=== PATIENT | male | born 1945 | race Two or more races ===

== ENCOUNTER 2023-02-17 09:59 | Emergency (ER) | payer MEDICARE, MEDICAID ==
[~2023-02-17] VITALS: Ht 182.9 cm; Wt 85.0 kg
[2023-02-17 10:30] VITALS: BP 137/62
[2023-02-17 11:16] LABS: Urine Bacteria NONE SEEN /hpf (None Seen); Urine Blood 3+ /uL (Negative); Urine WBC 1343 /hpf (0 - 3); Urine WBC Clumps PRESENT /hpf (None Seen)
[2023-02-17 11:30] LABS: Urine Specific Gravity 1.015 (1.001-1.035)
[2023-02-17 12:00] LABS: Basophils # (auto) 0.1 10 ^3/uL (0-0.2); Basophils % (auto) 0.5 % (0.0-2.0); Eosinophils # (auto) 0 10 ^3/uL (0-0.8); Eosinophils % (auto) 0.2 % (0.0-7.0); Hematocrit 44.3 % (41.0-53.0); Hemoglobin 14.9 g/dL (13.5-17.5); Lymphocytes # (auto) 1.1 10 ^3/uL (0.4-5.4); Lymphocytes % (auto) 9.1 % (10.0-50.0); Mean Corpuscular Hemoglobin 29.3 pg (28.0-32.0); Mean Corpuscular Hgb Conc. 33.6 g/dL (32.0-36.0); Mean Corpuscular Volume 87.3 fL (80.0-100.0); Monocytes # (auto) 0.8 10 ^3/uL (0-1.3); Monocytes % (auto) 7.1 % (0.0-12.0); Neutrophils # (auto) 9.9 10 ^3/uL (1.6-8.6); Neutrophils % (auto) 83.1 % (37.0-80.0); Nucleated Red Blood Cells % 0.1 %; Red Blood Cells 5.08 10^6/uL (4.5-5.90); Red Cell Distribution Width 14.8 % (11.8-14.3); White Blood Cell 11.9 10^3/uL (4.4-10.8)
[2023-02-17 12:18] LABS: Albumin 3.8 g/dL (3.4-5.0); Calcium 8.9 mg/dL (8.5-10.1); Potassium 3.8 mmol/L (3.5-5.1)
[2023-02-17 12:22] LABS: BUN/Creatinine Ratio 15.9 (10.0-20.0); Bilirubin, Total 1.7 mg/dL (0.2-1.0); Total Protein 7.5 g/dL (6.4-8.2)
[2023-02-17 12:27] LABS: INR 1.07 (0.9-1.15); Partial Thromboplastin Time 34.1 sec (24.6-33.4)
[2023-02-17] MEDS ORDERED: D5W/LACTATED RINGERS 1,000 ML IV ONE (15:45)
[2023-02-17] MEDS ORDERED: cefTRIAXone 1GM/50ML D5W 50 ML IV ONE (15:45)
== END 2023-02-17 18:19 | disposition left against medical advice (07) ==
LOC: ER 09:59
DX: N13.30 Unspecified hydronephrosis (principal); N32.9 Bladder disorder, unspecified; E11.9 Type 2 diabetes mellitus without complications; I10 Essential (primary) hypertension
CPT/HCPCS: 36415; 74176; 80053; 81001; 85025; 85610; 85730

== ENCOUNTER 2024-06-21 23:01 | Emergency (ER) | payer MEDICARE, MEDICAID ==
[~2024-06-21] VITALS: Ht 175.3 cm; Wt 77.1 kg
[2024-06-21 23:40] VITALS: TEMP 97.8
[2024-06-22] MEDS: SODIUM CHLORIDE 0.9% 1,000 ML IVB ONE (00:16)
[2024-06-22] MEDS: ONDANSETRON HCL 4 MG/2 ML VIAL IV ONE ×2 (00:18→02:32)
[2024-06-22] MEDS: MORPHINE SULFATE 4 MG/ML SYR/VIAL IV ONE ×2 (00:19→02:33)
[2024-06-22 00:51] LABS: Basophils # (auto) 0 10 ^3/uL (0-0.2); Basophils % (auto) 0.2 % (0.0-2.0); Eosinophils # (auto) 0 10 ^3/uL (0-0.8); Hemoglobin 13.1 g/dL (13.5-17.5); Lymphocytes # (auto) 0.5 10 ^3/uL (0.4-5.4); Lymphocytes % (auto) 3.3 % (10.0-50.0); Mean Corpuscular Hemoglobin 29.7 pg (28.0-32.0); Mean Corpuscular Hgb Conc. 33.7 g/dL (32.0-36.0); Mean Corpuscular Volume 88.1 fL (80.0-100.0); Monocytes # (auto) 0.4 10 ^3/uL (0-1.3); Monocytes % (auto) 2.3 % (0.0-12.0); Neutrophils # (auto) 14.1 10 ^3/uL (1.6-8.6); Neutrophils % (auto) 94.2 % (37.0-80.0); Platelet Count (auto) 157 10^3/uL (140-450); Red Blood Cells 4.43 10^6/uL (4.5-5.90); Red Cell Distribution Width 14.2 % (11.8-14.3)
[2024-06-22 01:04] LABS: INR 1.19 (0.9-1.15); Prothrombin Time 12.5 sec (9.3-11.8)
[2024-06-22 01:11] LABS: Alanine Aminotransferase 10 U/L (7-40); Albumin 3.8 g/dL (3.2-4.8); Alkaline Phosphatase 78 U/L (46-116); Anion Gap 9 (5-15); Aspartate Aminotransferase 11 U/L (13-40); Bilirubin, Total 0.9 mg/dL (0.2-1.0); Blood Urea Nitrogen 39 mg/dL (9-23); Calcium 8.4 mg/dL (8.7-10.4); Carbon Dioxide 18 mmol/L (20-30); Chloride 105 mmol/L (98-107); Glucose 228 mg/dL (74-106); Potassium 5.4 mmol/L (3.5-5.1); Sodium 132 mmol/L (136-145); Total Protein 6.8 g/dL (5.7-8.2)
[2024-06-22 04:00] VITALS: BP 126/67; RESP 16; O2SAT 98
[2024-06-22] MEDS ORDERED: LEVO500T91 PO (04:11)
[2024-06-22] MEDS ORDERED: HYDR-4798 PO (04:11)
[2024-06-22 04:34] VITALS: PULSE 133
[2024-06-22] MEDS: METOPROLOL TARTRATE 1MG/1ML-5ML VIAL IV ONE (04:36)
[2024-06-22] MEDS ORDERED: METOPROLOL TARTRATE 1MG/1ML-5ML VIAL IV SCH (04:45)
[2024-06-22] MEDS: SODIUM CHLORIDE 0.9% 1,000 ML IV ONE (04:46)
[2024-06-22] MEDS: METOPROLOL TARTRATE 1MG/1ML-5ML VIAL IV SCH (04:54)
== END 2024-06-22 05:48 | disposition home or self-care (01) ==
LOC: ER 23:01 → EDBD 23:01 → ER 06-22 05:48
DX: N13.30 Unspecified hydronephrosis (principal); K44.9 Diaphragmatic hernia without obstruction or gangrene; E11.9 Type 2 diabetes mellitus without complications; I10 Essential (primary) hypertension; I25.2 Old myocardial infarction
CPT/HCPCS: 36415; 74176; 80053; 85025; 85610; 86850; 86900; 86901; 93005; 96361; 96374; 96375; 96376; 99285; J2270; J2405; J7030

== ENCOUNTER 2024-06-22 15:15 | Emergency (ER) | payer MEDICARE, MEDICAID ==
[~2024-06-22] VITALS: Ht 180.3 cm; Wt 85.0 kg
[~2024-06-22 15:15] MED LIST: HYDR-4798 PO; LEVO500T91 PO
[2024-06-22 17:51] VITALS: BP 119/87; PULSE 127; RESP 18; O2SAT 94
== END 2024-06-22 18:20 | disposition left against medical advice (07) ==
LOC: ER 15:15
DX: R31.9 Hematuria, unspecified (principal); R30.9 Painful micturition, unspecified; Z53.21 Procedure and treatment not carried out due to patient leaving prior to being seen by health care provider
CPT/HCPCS: 93005

== ENCOUNTER 2024-11-15 03:20 | Inpatient (IN) | payer MEDICARE, MEDICAID ==
[~2024-11-15] VITALS: Ht 182.9 cm; Wt 90.8 kg
--- NOTE | 2024-11-15 04:00 | ED.PDOC ---
History of Present Illness HPI Comments 79 y/o M is BIBA for c/o left-sided body pain s/p mechanica fall and injury, today. Per EMS report, patient is stated to have been in his bathroom when he, suddenly, felt dizzy, and slipped and fell onto his left-side w/o lost of consciousness or additional injuries sustained then. Patient was noted to have had stable vitals within normal limits, with exception of Aflutter w/PAC's and PVC's on lead caster. Patient denies having any additional injuries, vision or speech changes, dizziness, fever, chills, or other associated symptoms or modifiers at this time. Chief Complaint: Syncope Time Seen by MD: 03:35 Primary Care Provider: FILIPE Brar Notes: Nurses Notes, Spd Tech Notes, Medications, Allergies Allergies: Coded Allergies: NO KNOWN ALLERGIES (Unverified , 02/17/23) Home Meds Active Scripts Hydrocodone-Acetaminophen (Hydrocodone Bitartrate/AC 10-325 mg) 1 Tab Tab, 1 TAB PO QIDP, #20 TAB Prov:ANDREAS MASTERS MD 06/22/24 Levofloxacin Hemihydrate (LEVAQUIN 500 MG) 500 Mg Tab, 500 MG PO DAILY for 7 Days, #7 TAB Prov:ANDREAS MASTERS MD 06/22/24 Information Source: Patient, Emergency Med Personnel Mode of Arrival: EMS Severity: Moderate Timing: Hours Duration: Since onset Prehospital treatment: 12 Lead EKG, Paperhanger Past Medical History PAST MEDICAL HISTORY: DM, HTN, Kidney Stones, ID Family History Family History: Reviewed,noncontributory to illness Social History Smoker: Non-Smoker Alcohol: Denies ETOH Use Drugs: Denies Drug Use Lives In: Home Musculoskeletal: reports: others (left-sided rib pain ) All Other Systems: Reviewed and Negative (negative unless otherwise stated above or in HPI) Physical Exam General Appearance: No Apparent Distress, Normal HEENT: Normal ENT Inspection, Pharynx Normal, TMs Normal Neck: Full Range of Motion, Non-Tender, Normal, Normal Inspection Respiratory: Decreased Breath Sounds Cardiovascular: No Edema, No JVD, No Murmur, No Gallop, Normal Peripheral Pulses, Regular Rate/Rhythm Breast Exam: Deferred Gastrointestinal: No Organomegaly, Non Tender, No Pulsatile Mass, Normal Bowel Sounds, Soft Genitalia: Deferred Pelvic: Deferred Rectal: Deferred Extremities: No calf tenderness, Normal capillary refill, Normal inspection, Normal range of motion, Non-tender, No pedal edema Musculoskeletal : Location: Left Extremity Location: Other (rib) Apperance: Tenderness Neurologic: Alert, equipment coordinator II-XII nml as Tested, No Motor Deficits, Normal Affect, Normal Mood, No Sensory Deficits Cerebellar Function: Normal Reflexes: Normal Skin: Dry, Normal Color, Warm Lymphatic: No Adenopathy Was a procedure done? Was a procedure done?: No Differential Dx Considerations may include: Rib fractures pneumothorax diaphragmatic hernia X-Ray, Labs, Meds, VS Vital Signs Date Time Temp Pulse Resp B/P (MAP) Pulse Ox O2 Delivery O2 Flow Rate FiO2 11/15/24 03:39 97.5 62 22 108/50 (69) 95 11/15/24 03:21 [address] [address] Ph: [phone] DIAGNOSTIC IMAGING Diagnostic Imaging Report : [id number] Signed PATIENT: ALEKSANDAR SHAH ACCT: [id number] UNIT: [id number] : 10/09/1992 LOC: ER ROOM / BED: / AGE / SEX: 32 / M ADM STATUS: REG ER SERVICE [id number] ORDERING PHYSICIAN: ANDREAS MASTERS MD PROCEDURE(s): ABPL - CT AB PEL WO CON-NO ORAL OR IV REASON: abd pain ORDER NUMBER(s): [id number], ACCESSION NUMBER(s): [id number] Exam: CT CT AB PEL WO CON-NO ORAL OR IV History: abd pain Comparison Study: CT scan of the abdomen pelvis performed on 07/22/2020. Technique: Multidetector spiral CT of the abdomen and pelvis was performed from lung bases to pubic symphysis. Imaging was performed without intravenous contrast. Coronal and sagittal multiplanar reformats were obtained from the axial data set by the technologist. Radiation Dose : 1. Abdomen/Pelvis: CTDIvol 27.6 mGy, DLP 1621.3 mGy*cm. Findings: Evaluation of vasculature and solid organs is limited due to lack of intravenous contrast use. Lung Bases: Lung bases are clear. Visualized portions of the heart and pericardium are unremarkable. Liver: The liver is enlarged measuring 24.9 cm. Low attenuating liver parenchyma. No focal lesions. Gallbladder and Biliary Tree: The gallbladder is unremarkable. No intrahepatic or extrahepatic biliary ductal dilatation. Spleen: Unremarkable Pancreas: The pancreas is grossly unremarkable. Adrenal Glands: Unremarkable Kidneys: Kidneys are unremarkable without calculi or hydronephrosis. GI tract: The stomach is grossly normal in appearance. No evidence of small bowel wall thickening or abnormal dilatation to suggest bowel obstruction. The colon is unremarkable. The appendix is visualized and is normal. Peritoneum/mesentery/retroperitoneum. No evidence of free intraperitoneal air. No ascites. No evidence of suspicious lymphadenopathy. Abdominal Wall: Large umbilical hernia containing bowel loops and iperitoneal fat. No obstruction. Vasculature: The visualized abdominal aorta is normal in size and caliber. Evaluation of abdominal and pelvic vessels is limited due to lack of intravenous contrast. Urinary Bladder: Grossly unremarkable for degree of distention. Pelvic Organs: Unremarkable Musculoskeletal: No aggressive focal bony lesions, acute fractures or dislocation. IMPRESSION: 1. Large umbilical hernia containing bowel loops and peritoneal fat. No bowel obstruction. 2. Hepatic steatosis and hepatomegaly. ATED BY: GABE ORNELAS MD DICTATED DATE/TIME: 11/15/24434 SIGNED BY: GABE ORNELAS MD SIGNED DATE/TIME: 11/15/24434 CC: This is a 79 year he attempted to go up a step and fell as he only made it up one step. Fellow his left chest causing severe pain. Although the chest CT is pending it appears to me he has a large hiatal hernia with intestine events and is high is T8 on the left side. I will for the diminished breath sounds on the left. Labs are pending The patient will be admitted to the hospitalist for further evaluation and care. Time of 1ST Reevaluation: 04:05 Reevaluation 1ST: Unchanged Patient Education/Counseling: Diagnosis, Treatment Family Education/Counseling: No Family Present Departure 1 Departure Time of Disposition: 05:28 Impression: Primary Impression: Diaphragmatic hernia Qualified Codes: K44.9 - Diaphragmatic hernia without obstruction or gangrene Additional Impressions: Dizziness Fall Qualified Codes: W19.XXXA - Unspecified fall, initial encounter Syncope Qualified Codes: R55 - Syncope and collapse Chest wall pain Hepatomegaly Steatosis Disposition: ADMITTED INPATIENT Admit to: Tele Condition: Guarded Critical Care Note Critical Care Time?: Yes (45 min-critical care time only) Stability Stability form required: No Heart Score Heart Score: Heart Score Response (Comments) Value History N/A 0 EKG N/A 0 Age N/A 0 Risk Factors N/A 0 Troponin N/A 0 Total 0 I personally scribed for ANDREAS MASTERS MD ([email or web address]) on 11/15/24 at 04:00. Electronically submitted by Tremaine Zarate ([email or web address]). ANDREAS MASTERS MD Nov 15, 2024 04:00
--- NOTE | 2024-11-15 04:54 | DVH ---
EXAM: CT HEAD WITHOUT CONTRAST INDICATION: dizzy TECHNIQUE: CT of the head without intravenous contrast. Coronal and sagittal reformatted images are submitted. Radiation Dose : 1. Head: CT Dose: CTDI volume is 18.0 mGy. Dose-length product is 768.9 mGy*cm The dose indicators for CT are the volume Computed Tomography (CT) Dose Index (CTDIvol) and the Dose Length Product (DLP), and are measured in units of mGy and mGy-cm, respectively. These indicators are not patient dose, but values generated from the CT scanner acquisition factors. The report includes radiation exposure data for exposures received during this examination. All CT scans at this medical facility are performed using dose modulation techniques as appropriate to a performed exam including the following: Automated exposure control was utilized; adjustment of the MA and/or KV according to patient size; and use of iterative reconstruction technique. COMPARISON: None. FINDINGS: There is no evidence of acute intracranial hemorrhage, extra-axial collection, mass effect, midline s hift, herniation or hydrocephalus. The ventricles, sulci and cisterns are age appropriate. The weiss-white differentiation is intact. The visualized paranasal sinuses and mastoid air cells are clear. No depressed calvarial fracture. The surrounding soft tissues are unremarkable. IMPRESSION: 1. No evidence of acute intracranial abnormality.
[2024-11-15] MEDS: MORPHINE SULFATE 4 MG/ML SYR/VIAL IV ONE (05:27)
--- NOTE | 2024-11-15 05:29 | DVH ---
Procedure: CT CHEST WITHOUT CONTRAST Reason for study/Clinical History: fall Comparison Study: None available at time of dictation. Exam Date: 11/15/2024 04:32 AM TECHNIQUE: Multidetector CT of the chest was performed from the lung apices to the upper abdomen with out the use of intravenous contract. Axial, coronal and sagittal multiplanar reformats were performed . Radiation Dose Information: CT Dose: CTDI volume is 18.0 mGy. Dose-length product is 768.92 mGy*cm The dose indicators for CT are the volume Computed Tomography (CT) Dose Index (CTDIvol) and the Dose Length Product (DLP), and are measured in units of mGy and mGy-cm, respectively. These indicators are not patient dose, but values generated from the CT scanner acquisition factors. The report includes radiation exposure data for exposures received during this examination. FINDINGS: Lower neck: Normal thyroid. Lungs: Large diaphragmatic hernia which extends into the left thorax. This deviates the mediastinum t o the right. Left basilar atelectasis. No focal consolidation, pleural effusion or pneumothorax. Central airways: Patent. Heart/Vascular Structures: The heart is enlarged. Coronary artery calcifications. No pericardial effu tracy. The main pulmonary artery is enlarged measuring 3.7 cm which May suggest pulmonary arterial hyp ertension. Normal caliber thoracic aorta with scattered atherosclerotic calcifications. Lymph Nodes: No adenopathy Musculoskeletal: There is an acute left 10th and 11th posterior rib fractures. Mild L2 compression de formity. Soft tissues: Normal. Upper abdomen: Left diaphragmatic hernia containing colon and spleen Bilateral renal cysts. Multiple calcifications in the liver. IMPRESSION: 1. Acute left posterior 10th and 11th rib fractures. No pneumothorax. 2. Left basilar atelectasis. 3. Cardiomegaly. Coronary artery disease. Dilated main pulmonary artery which may represent pulmonar y arterial hypertension. 4. Left large diaphragmatic hernia containing colon and spleen. Radiation optimization: All CT scans at this facility use at least one of these dose optimization brianda hniques: automated exposure control mA and/or kV adjustment per patient size (includes targeted exam s where dose is matched to clinical indication) or iterative reconstruction.
[2024-11-15 05:30] VITALS: PULSE 90; RESP 17; O2SAT 97
[2024-11-15 05:46] LABS: Basophils # (auto) 0.1 10 ^3/uL (0-0.2); Basophils % (auto) 0.5 % (0.0-2.0); Eosinophils # (auto) 0.1 10 ^3/uL (0-0.8); Eosinophils % (auto) 0.6 % (0.0-7.0); Hematocrit 42.5 % (41.0-53.0); Hemoglobin 14.2 g/dL (13.5-17.5); Lymphocytes # (auto) 0.7 10 ^3/uL (0.4-5.4); Lymphocytes % (auto) 6.8 % (10.0-50.0); Mean Corpuscular Hemoglobin 28.7 pg (28.0-32.0); Mean Corpuscular Hgb Conc. 33.3 g/dL (32.0-36.0); Mean Corpuscular Volume 86.2 fL (80.0-100.0); Monocytes # (auto) 0.4 10 ^3/uL (0-1.3); Monocytes % (auto) 3.4 % (0.0-12.0); Neutrophils # (auto) 9.4 10 ^3/uL (1.6-8.6); Neutrophils % (auto) 88.7 % (37.0-80.0); Nucleated Red Blood Cells % 0.1 %; Platelet Count (auto) 140 10^3/uL (140-450); Red Blood Cells 4.93 10^6/uL (4.5-5.90); Red Cell Distribution Width 15.4 % (11.8-14.3); White Blood Cell 10.7 10^3/uL (4.4-10.8)
[2024-11-15 06:03] LABS: INR 0.97 (0.9-1.15); Partial Thromboplastin Time 28.8 SEC (24.5-34.5); Prothrombin Time 10.3 sec (9.3-11.8)
[2024-11-15 06:15] LABS: Alanine Aminotransferase 17 U/L (7-40); Albumin 4.2 g/dL (3.2-4.8); Alkaline Phosphatase 63 U/L (46-116); Anion Gap 8 (5-15); Aspartate Aminotransferase 22 U/L (13-40); Blood Urea Nitrogen 21 mg/dL (9-23); Calcium 9.7 mg/dL (8.7-10.4); Carbon Dioxide 26 mmol/L (20-31); Potassium 3.9 mmol/L (3.5-5.1); Sodium 142 mmol/L (136-145)
[2024-11-15 06:16] LABS: Bilirubin, Total 0.8 mg/dL (0.2-1.0); Total Protein 7.1 g/dL (5.7-8.2)
[2024-11-15 06:21] LABS: Chloride 108 mmol/L (98-107); Glucose 131 mg/dL (74-106)
[2024-11-15] MEDS ORDERED: HYDROcodone-ACET 5/325MG TAB PO PRN (08:45)
[2024-11-15] MEDS ORDERED: ACETAMINOPHEN 325 MG TAB PO PRN (08:45)
[2024-11-15] MEDS ORDERED: NITROGLYCERIN 0.4 MG SL TAB SL PRN (08:45)
[2024-11-15] MEDS ORDERED: ONDANSETRON HCL 4 MG/2 ML VIAL IV PRN (08:45)
[2024-11-15] MEDS ORDERED: DEXTROSE (50%) 50ML SYRG IV PRN (08:45)
[2024-11-15] MEDS ORDERED: DOCUSATE SOD 100 MG CAP PO PRN (08:45)
[2024-11-15] MEDS ORDERED: MORPHINE SULFATE INJ 2 MG/ml SYRG IV PRN (08:45)
[2024-11-15] MEDS ORDERED: KETOROLAC TROMETH 30 MG/ML 1ML VIAL IV PRN (09:00)
--- NOTE | 2024-11-15 09:14 | DVHHP2 ---
History of Present Illness Reason for Visit: Fall History of Present Illness Flower Joe is an 79-year-old male with past medical history of RI in 2013 with 2 stents placed, diabetes, hypertension, kidney stones, and hypothyroidism, who was brought to the hospital after he fell this morning. Patient states he woke up early this morning to go to the bathroom, while walking in the bathroom he fell and hit his left side on the stairs to his bathtub. Patient states his heard him fall and came to help him. Due to the pain it was difficult for him to get up at first. Patient denies any dizziness, palpitations, chest pain or loss of consciousness at time of fall. States he is not sure why or how he f ell. While in the ER patient had an EKG completed that showed he is in atrial flutter. Patient denies any history of irregular heart rhythm. Cardiovascular: CAD, HTN, RI (2013) Renal/: Other (kidney stones) Endocrine: Diabetes, Hypothyroidism Past Surgical History: Other (PTCA 2014 2 stents placed, ) Smoke: No ALCOHOL: none Drugs: None Lives: with Family Domestic Violence: Neg Review of Systems Constitutional: No: Fever, Chills, Sweats, Weakness, Malaise, Other Eyes: No: Pain, Vision change, Conjunctivae inflammation, Eyelid inflammation, Other, Redness ENT: No: Ear pain, Ear discharge, Nose pain, Nose discharge, Nose congestion, Mouth pain, Mouth swelling, Throat pain, Throat swelling, Other Respiratory: No: Cough, Dry, Shortness of breath, SOB with excertion, Wheezing, Hemoptysis, Pleuritic Pain, Sputum, Wheezing, Other Cardiovascular: No: Chest Pain, Palpitations, Orthopnea, Paroxysmal Noc. Dyspnea, Edema, Lt Headedness, Other Gastrointestinal: No: Nausea, Vomiting, Abdominal Pain, Diarrhea, Constipation, Melena, Hematochezia, Other Genitourinary: No Dysuria, No Frequency, No Incontinence, No Hematuria, No Retention, No Other Musculoskeletal: back pain (left); No: other, neck pain, shoulder pain, arm pain, hand pain, leg pain, foot pain Skin: No: Rash, Lesions, Jaundice, Bruising, Other Neurological: No: Weakness, Numbness, Incoordination, Change in speech, Confusion, Seizures, Other Allergies: Coded Allergies: NO KNOWN ALLERGIES (Unverified , 5/10/23) Exam Vital Signs Vital Signs Date Time Temp Pulse Resp B/P (MAP) Pulse Ox O2 Delivery O2 Flow Rate FiO2 11/15/24 07:49 99 18 96 Room Air 11/15/24 07:45 99.1 138/70 (92) 99.1 11/15/24 05:30 0 21 General Appearance: Alert, Oriented X3, Cooperative, mild distress HEENT: Atraumatic, PERRLA Respiratory: Clear to auscultation, Normal air movement Cardiovascular: Regular rate Abdominal: Normal bowel sounds, Soft, No tenderness Extremities: No clubbing, No cyanosis, No edema Skin: No rashes, No breakdown, No significant lesion Neuro: Normal speech, Sensation intact Psych/Mental Status: Mental status NL, Mood NL Labs/Xrays Labs Test 11/15/24 06:24 11/15/24 05:32 Range/Units Troponin I High Sensitivity 6 </=54 ng/L White Blood Count 10.7 4.4-10.8 10^3/uL Red Blood Count 4.93 4.5-5.90 10^6/uL Hemoglobin 14.2 13.5-17.5 g/dL Hematocrit 42.5 41.0-53.0 % Mean Corpuscular Volume 86.2 80.0-100.0 fL Mean Corpuscular Hemoglobin 28.7 28.0-32.0 pg Mean Corpuscular Hemoglobin Concent 33.3 32.0-36.0 g/dL Red Cell Distribution Width 15.4 H 11.8-14.3 % Platelet Count 140 140-450 10^3/uL Mean Platelet Volume 7.7 6.9-10.8 fL Neutrophils (%) (Auto) 88.7 H 37.0-80.0 % Lymphocytes (%) (Auto) 6.8 L 10.0-50.0 % Monocytes (%) (Auto) 3.4 0.0-12.0 % Eosinophils (%) (Auto) 0.6 0.0-7.0 % Basophils (%) (Auto) 0.5 0.0-2.0 % Neutrophils # (Auto) 9.4 H 1.6-8.6 10 ^3/uL Lymphocytes # (Auto) 0.7 0.4-5.4 10 ^3/uL Monocytes # (Auto) 0.4 0-1.3 10 ^3/uL Eosinophils # (Auto) 0.1 0-0.8 10 ^3/uL Basophils # (Auto) 0.1 0-0.2 10 ^3/uL Nucleated Red Blood Cells 0.1 % Prothrombin Time 10.3 9.3-11.8 sec Prothrombin Time INR 0.97 0.9-1.15 Activated Partial Thromboplast Time 28.8 24.5-34.5 SEC Sodium Level 142 136-145 mmol/L Potassium Level 3.9 3.5-5.1 mmol/L Chloride Level 108 H 98-107 mmol/L Carbon Dioxide Level 26 20-31 mmol/L Anion Gap 8 5-15 Blood Urea Nitrogen 21 9-23 mg/dL Creatinine 1.31 H 0.700-1.30 mg/dL Glomerular Filtration Rate Calc 55 >90 mL/min BUN/Creatinine Ratio 16.0 10.0-20.0 Serum Glucose 131 H 74-106 mg/dL Calcium Level 9.7 8.7-10.4 mg/dL Magnesium Level 2.0 1.6-2.6 mg/dL Total Bilirubin 0.8 0.2-1.0 mg/dL Aspartate Amino Transferase (AST) 22 13-40 U/L Alanine Aminotransferase (ALT) 17 7-40 U/L Alkaline Phosphatase 63 46-116 U/L B-Type Natriuretic Peptide 85.63 0-100 pg/mL Total Protein 7.1 5.7-8.2 g/dL Albumin 4.2 3.2-4.8 g/dL EXAM: CT HEAD WITHOUT CONTRAST COMPARISON: None. FINDINGS: There is no evidence of acute intracranial hemorrhage, extra-axial collection, mass effect, midline shift, herniation or hydrocephalus. The ventricles, sulci and cisterns are age appropriate. The weiss-white differentiation is intact. The visualized paranasal sinuses and mastoid air cells are clear. No depressed calvarial fracture. The surrounding soft tissues are unremarkable. IMPRESSION: 1. No evidence of acute intracranial abnormality. Procedure: CT CHEST WITHOUT CONTRAST FINDINGS: Lower neck: Normal thyroid. Lungs: Large diaphragmatic hernia which extends into the left thorax. This deviates the mediastinum to the right. Left basilar atelectasis. No focal consolidation, pleural effusion or pneumothorax. Central airways: Patent. Heart/Vascular Structures: The heart is enlarged. Coronary artery calcifications. No pericardial effusion. The main pulmonary artery is enlarged measuring 3.7 cm which May suggest pulmonary arterial hypertension. Normal caliber thoracic aorta with scattered atherosclerotic calcifications. Lymph Nodes: No adenopathy Musculoskeletal: There is an acute left 10th and 11th posterior rib fractures. Mild L2 compression deformity. Soft tissues: Normal. Upper abdomen: Left diaphragmatic hernia containing colon and spleen Bilateral renal cysts. Multiple calcifications in the liver. IMPRESSION: 1. Acute left posterior 10th and 11th rib fractures. No pneumothorax. 2. Left basilar atelectasis. 3. Cardiomegaly. Coronary artery disease. Dilated main pulmonary artery which may represent pulmonary arterial hypertension. 4. Left large diaphragmatic hernia containing colon and spleen. Assessment/Plan Assessment/Plan Assessment: Fall with injury, Multiple rib fractures, Possible syncope, New onset atrial flutter, Large diaphragmatic hernia, Hypertension, Diabetes, Hypothyroidism, Plan: Admit to Tele, Cardiology consult, ECHO, Carotid ultrasound, A1c, Pain management, Accu checks Q AC&HS with sliding scale, Home medications reconciled, Plan discussed with: Patient My Orders Orders - EVERARDO PRIDE Procedure Category Date Status Time * Cardiology Consult CONS 11/15/24 Transmitted 08:41 Glucose Blood PHA 11/15/24 Verified (Accu-Chek Comfort 11:30 Bedtime Insulin Scale PHA 11/15/24 Verified 22:00 Moderate Insulin Ss PHA 11/15/24 Verified 11:30 Dextrose 50% Syringe PHA 11/15/24 Verified 08:45 Admit ADMIT 11/15/24 Verified 08:42 Code Status CODE 11/15/24 Verified 08:42 Sodium Chloride Lock PHA 11/15/24 Verified (Saline Lock Ns) 14:00 Hydrocodone-Acet PHA 11/15/24 Verified 5/325mg Tab ([place] 08:45 Ondansetron Hcl PHA 11/15/24 Verified (Zofran) 08:45 Docusate Sodium PHA 11/15/24 Verified Capsule (Colace 08:45 Fall Risk Precautions INGA 11/15/[address] 08:42 Complete Blood Count LAB 11/16/24 Verified 04:00 Comprehensive LAB 11/16/24 Verified Metabolic Panel 04:00 Cardiac DIET 11/15/24 Verified Diet-2gna,Lofat,Lochol Breakfast Echo 2d Mode Cardiac US 11/15/24 Verified DOP 08:42 Carotid Duplx W Color US 11/15/24 Verified DOP 08:42 Condition: Serious [facility] 11/15/24 Verified 08:42 Acetaminophen Tablet [facility] 11/15/24 Verified (Tylenol Tablet) 08:45 Nitroglycerin [facility] 11/15/24 Verified Sublingual (Ntrostat 08:45 Morphine Sulfate [facility] 11/15/24 Verified Injection 08:45 Stat Ekg For Chest [facility] 11/15/24 Verified Pain 08:42 Notify Md Of Changes [facility] 11/15/24 Verified From Base 08:42 Labelling Machine Operator For [facility] 11/15/24 Verified 24 Hours 08:42 Emergency Dysrhythmia [facility] 11/15/24 Verified Protocol 08:42 Rhythm Strips Once [facility] 11/15/24 Verified Every Shift 08:42 Oxygen By Nasal 11/15/24 Verified Cannula 08:42 Date of Service: Nov 15, 2024 Billing Provider: EVERARDO PRIDE Common Visit Codes: [id number] INP/OBS CARE (MOD) EVERARDO PRIDE Nov 15, 2024 09:14
--- NOTE | 2024-11-15 09:41 | DVH ---
CAROTID ARTERIAL DOPPLER CLINICAL HISTORY: syncope TECHNIQUE: Doppler study of bilateral carotid/vertebral arteries were performed. Comparison: None FINDINGS: The bilateral common carotid, external and internal carotid arteries appear patent without hemodynami jane significant stenosis. There is no significant flow limiting plaque formation identified.The sp ectral wave forms and peak systolic velocities are within normal limits. Antegrade flow is present within the vertebral arteries with appropriate velocities and waveforms. Right ICA/CCA PSV ratio = 0.9. Left ICA/CCA PSV ratio = 0.8 . IMPRESSION: 1. No hemodynamically significant stenosis within the carotid arteries. HS:Y
[2024-11-15 11:12] LABS: Urine Bacteria None Seen /hpf (None Seen)
[2024-11-15] MEDS ORDERED: METH-928 PO (11:21)
[2024-11-15] MEDS ORDERED: LEVO125T7 PO (11:21)
[2024-11-15] MEDS ORDERED: ALLO300T2 PO (11:21)
[2024-11-15] MEDS ORDERED: MET25T PO (11:21)
[2024-11-15] MEDS ORDERED: LOSA-535 PO (11:21)
[2024-11-15 11:36] LABS: Urine Blood 3+ /uL (Negative); Urine Clarity Ex.Turbid (Clear); Urine Color Light-Red (Yellow); Urine Protein, UAD 2+ (Negative); Urine Specific Gravity 1.011 (1.001-1.035); Urine Squamous Epithelial Cell None Seen /hpf (<5); Urine Urobilinogen Normal (Negative); Urine WBC 1959 /HPF (0-3)
--- NOTE | 2024-11-15 11:42 | DVHINCON2 ---
Date Seen: Nov 15, 2024 Referring Physician TERE Thomas Reason for Consultation A-flutter, new onset History of Present Illness This is an 79-year-old man who presented to the emergency room via EMS with a chief complaint of fall injury earlier today. The patient reports he awoke to use the bathroom when he felt a sudden onset of dizziness with a subsequent fall injury onto his left-sided body. Denies loss of consciousness, oral trauma, or incontinence. Denies chest pain, palpitations, diaphoresis, shortness of breath, or syncope. The patient does complaint of gross hematuria since falling. Per son, the patient also experienced a hypoglycemic event last night with a blood glucose level in the 50s ng/dL. Patient underwent a 12 lead electrocardiogram revealing an atrial flutter rhythm with a variable block. The patient denies any history of cardiac arrhythmias. Follows up in the outpatient setting with the primary plastic duplicator in [place] given history of CAD. Significant medical history includes coronary artery disease status post PTCA in cluding two JAE at [facility] on 2013 and with current ASA therapy, hypertension, dyslipidemia, insulin-dependent diabetes mellitus, thyroid disease, and gout. Past Medical History Past medical history reviewed. No other significant than mentioned above. Past Surgical History PTCA including two JAE, 2013 Recent urinary procedure, 09/2024 Family History Family history reviewed. Social History Denies the use of illicit drugs, alcohol, or tobacco use. Allergies: Coded Allergies: NO KNOWN ALLERGIES (Unverified , 02/17/23) Home Meds Reported Medications Methenamine Hippurate (Methenamine Hippurate) 1 Gm Tab, 1 TAB PO BID 11/15/24 Levothyroxine Sodium (Levothyroxine Sodium) 125 Mcg Tab, 1 TAB PO DAILY 11/15/24 Allopurinol (Allopurinol) 300 Mg Tab, 1 TAB PO DAILY 11/15/24 Losartan Potassium (Losartan Potassium) 100 Mg Tab, 1 TAB PO DAILY 11/15/24 Metoprolol Tartrate (Lopressor) 25 Mg Tb, 1 TAB PO BID 11/15/24 Discontinued Scripts Hydrocodone-Acetaminophen (Hydrocodone Bitartrate/AC 10-325 mg) 1 Tab Tab, 1 TAB PO QIDP, #20 TAB Prov:ANDREAS MASTERS MD 06/22/24 Levofloxacin Hemihydrate (LEVAQUIN 500 MG) 500 Mg Tab, 500 MG PO DAILY for 7 Days, #7 TAB Prov:ANDREAS MASTERS MD 06/22/24 Home Meds Home medications reviewed. Current Medications Current Medications Medications (Trade) Dose Ordered Sig/Lizz Route PRN Reason Start Time Stop Time Status Last Admin Diagnostic Test (Pha) (Accu-Chek Comfort Curve T) 1 strip ACHS 11/15/24 11:30 Insulin Human Regular (InsuLIN R) HS SC 11/15/24 22:00 Insulin Human Regular (InsuLIN R) AC SC 11/15/24 11:30 Dextrose 50 ml UD PRN IV Blood Sugar LESS THAN 60 11/15/24 08:45 Sodium Chloride (Saline Lock Ns) 10 ml Q8HR IV 11/15/24 14:00 Acetaminophen/ Hydrocodone Bitart ([place] 5/325MG Tab) 1 tab Q4HP PRN PO MODERATE PAIN (4-6 PAIN SCALE) 11/15/24 08:45 Ondansetron HCl (Zofran) 4 mg Q4HP PRN IV NAUSEA / VOMITING 11/15/24 08:45 Docusate Sodium (Colace Capsule) 100 mg BIDPRN PRN PO FOR CONSTIPATION 11/15/24 08:45 Acetaminophen (Tylenol Tablet) 650 mg Q6HP PRN PO PAIN SCALE 1-3 OR TEMP>100.4 11/15/24 08:45 Nitroglycerin (Ntrostat Sublingual) 0.4 mg Q5MINP PRN SL FOR CHEST PAIN 11/15/24 08:45 Morphine Sulfate 2 mg Q30M PRN IV FOR CHEST PAIN 11/15/24 08:45 Ketorolac Tromethamine (Toradol Injection) 15 mg Q6HPRN PRN IV MODERATE PAIN (4-6 PAIN SCALE) 11/15/24 09:00 11/20/24 08:59 Metoprolol Tartrate (Lopressor Tablet) 25 mg BID PO 11/15/24 22:00 UNV Patient Own Medication 1 tab DAILY PO 11/16/24 10:00 UNV Patient Own Medication 1 tab DAILY PO 11/16/24 10:00 UNV Patient Own Medication 1 tab DAILY PO 11/16/24 10:00 UNV Patient Own Medication 1 tab BID PO 11/15/24 22:00 UNV Review of Systems Constitutional: No symptom reported Ears, Nose, & Throat: No symptom reported Eyes: No symptom reported Neurological: Dizziness Pulmonary/Respiratory: No symptom reported Cardiovascular: No symptom reported Gastrointestinal: No symptom reported Genitourinary: No symptom reported Musculoskeletal: No symptom reported Skin: No symptom reported Psychiatric: No symptom reported Endocrine: No symptom reported Hemotologic/Lymphatic: No symptom reported Vital Signs Vital Signs Date Time Temp Pulse Resp B/P (MAP) Pulse Ox O2 Delivery O2 Flow Rate FiO2 11/15/24 09:59 99.0 104 14 122/59 (80) 96 99.0 11/15/24 07:49 Room Air 11/15/24 05:30 0 21 Physical Exam General Appearance: Cooperative. Well developed. Well nourished. In no acute distress Head Exam: Normal inspection Neck Exam: Normal inspection. Non-tender. Normal alignment Pulmonary/Respiratory: Chest non-tender. Clear bilateral breath sounds Cardiovascular/Chest: Irregular rate and rhythm. S1, S2. A flutter, controlled rate. No murmurs. No JVD. Peripheral Pulses: 2+ Radial (R). 2+ Radial (L). 2+ Pedal (R). 2+ Pedal (L) Abdominal Exam: Normal bowel sounds. Soft. Nontender. No hepatospenomegaly. No masses Ankle Exam: Negative ankle edema Lower extremities: Negative lower extremity edema Neuro/Mental Status: A&O x4. Coherent Thoughts/Psych: Normal thought pattern. Appropriate mood and affect. Good judgement and insight Appearance: In no acute distress Skin Exam: Normal inspection. Normal color. Warm. Dry Labs/Diagnostic Data Labs Test 11/15/24 08:56 11/15/24 06:24 11/15/24 05:32 Range/Units Troponin I High Sensitivity 6 </=54 ng/L White Blood Count 10.7 4.4-10.8 10^3/uL Red Blood Count 4.93 4.5-5.90 10^6/uL Hemoglobin 14.2 13.5-17.5 g/dL Hematocrit 42.5 41.0-53.0 % Mean Corpuscular Volume 86.2 80.0-100.0 fL Mean Corpuscular Hemoglobin 28.7 28.0-32.0 pg Mean Corpuscular Hemoglobin Concent 33.3 32.0-36.0 g/dL Red Cell Distribution Width 15.4 H 11.8-14.3 % Platelet Count 140 140-450 10^3/uL Mean Platelet Volume 7.7 6.9-10.8 fL Neutrophils (%) (Auto) 88.7 H 37.0-80.0 % Lymphocytes (%) (Auto) 6.8 L 10.0-50.0 % Monocytes (%) (Auto) 3.4 0.0-12.0 % Eosinophils (%) (Auto) 0.6 0.0-7.0 % Basophils (%) (Auto) 0.5 0.0-2.0 % Neutrophils # (Auto) 9.4 H 1.6-8.6 10 ^3/uL Lymphocytes # (Auto) 0.7 0.4-5.4 10 ^3/uL Monocytes # (Auto) 0.4 0-1.3 10 ^3/uL Eosinophils # (Auto) 0.1 0-0.8 10 ^3/uL Basophils # (Auto) 0.1 0-0.2 10 ^3/uL Nucleated Red Blood Cells 0.1 % Prothrombin Time 10.3 9.3-11.8 sec Prothrombin Time INR 0.97 0.9-1.15 Activated Partial Thromboplast Time 28.8 24.5-34.5 SEC Sodium Level 142 136-145 mmol/L Potassium Level 3.9 3.5-5.1 mmol/L Chloride Level 108 H 98-107 mmol/L Carbon Dioxide Level 26 20-31 mmol/L Anion Gap 8 5-15 Blood Urea Nitrogen 21 9-23 mg/dL Creatinine 1.31 H 0.700-1.30 mg/dL Glomerular Filtration Rate Calc 55 >90 mL/min BUN/Creatinine Ratio 16.0 10.0-20.0 Serum Glucose 131 H 74-106 mg/dL Calcium Level 9.7 8.7-10.4 mg/dL Magnesium Level 2.0 1.6-2.6 mg/dL Total Bilirubin 0.8 0.2-1.0 mg/dL Aspartate Amino Transferase (AST) 22 13-40 U/L Alanine Aminotransferase (ALT) 17 7-40 U/L Alkaline Phosphatase 63 46-116 U/L B-Type Natriuretic Peptide 85.63 0-100 pg/mL Total Protein 7.1 5.7-8.2 g/dL Albumin 4.2 3.2-4.8 g/dL Assessment Atrial flutter with variable block, controlled rate, newly diagnosed Near syncopal event with associated hypoglycemia Rule out structural heart disease Insulin-dependent diabetes mellitus Likely CKD stage III Hypertension Dyslipidemia Thyroid disease Hematuria Plan/Recommendation We will continue the following plan/recommendations (Dr. Bar): * Echocardiogram to evaluate cardiac function * Initiate Metoprolol XL and uptitrate as tolerate * Avoid antiarrhythmic agents given unknown onset of A-flutter * Low-dose DOAC therapy and ASA per Urology clearance * Reports gross hematuria post fall injury * ?[id number] Score. HAS-BLED Score 1 point * Monitor ECG changes and notify * Lipid lowering agent * TSH levels pending Thank you for allowing us to participate in this patient's care. Please call if you have any questions or concerns. This medical document was created using an electronic medical record system with voice recognition software and computerized dictation system. Although this document has been carefully reviewed, there might still be some phonetic and typographical errors. Occasional wrong-word or ``sound-alike substitutions may have occurred due to the inherent limitations of voice recognition software. These areas are purely typographical due to imperfections of the software programs and do not reflect any compromise in the patient's medical care. Please read the chart carefully and recognize, using context, where these substitutions have occurred. Plan discussed with: Patient, Son, Other NYHA Physical activity limitations: NA Date of Service: Nov 15, 2024 Billing Provider: GUANAKITO SPRAGUE Cardiology Common Codes: 84375-ROCGJRU INP/OBS CARE (High) GUANAKITO SPRAGUE Nov 15, 2024 11:42
[2024-11-15] MEDS: ACCU-CHEK COMFORT CURVE STRIP VI SCH (11:56)
[2024-11-15] MEDS: InsuLIN REG 1unit/0.01ml Soln (100units/ml) SC SCH (12:01)
[2024-11-15 12:09] LABS: Triglycerides 52 mg/dL (< 150)
--- NOTE | 2024-11-15 12:09 | ECG ---
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
[2024-11-15 12:10] LABS: LDL Cholesterol 66 mg/dL (< 100)
[2024-11-15 12:11] LABS: HDL Cholesterol 43 mg/dL (40-59)
[2024-11-15 12:12] LABS: Cholesterol 116 mg/dL (< 200)
[2024-11-15 12:39] VITALS: BP 117/41; PULSE 88; RESP 16; TEMP 99.6; O2SAT 98
[2024-11-15] MEDS: METOPROLOL SUCCINATE XL 50 MG TAB PO ONE (13:44)
[2024-11-15] MEDS ORDERED: SODIUM CHLOR 0.9% PF (SALINE LOCK) 10ML VIAL/SYR IV SCH (14:00)
[2024-11-15] MEDS ORDERED: InsuLIN REG 1unit/0.01ml Soln (100units/ml) SC SCH (22:00)
[2024-11-15] MEDS ORDERED: METOPROLOL TARTRATE 25 MG TAB PO SCH (22:00)
[2024-11-15] MEDS ORDERED: METHENAMINE HIPPURATE PO SCH (22:00)
[2024-11-15] MEDS ORDERED: ATORVASTATIN 20 MG TAB PO SCH (22:00)
[2024-11-16] MEDS ORDERED: PATIENTS OWN MEDICATION (Levothyroxine Sodium 1 TAB) PO SCH (10:00)
[2024-11-16] MEDS ORDERED: PATIENTS OWN MEDICATION (Allopurinol 1 TAB) PO SCH (10:00)
[2024-11-16] MEDS ORDERED: PATIENTS OWN MEDICATION (Losartan Potassium 1 TAB) PO SCH (10:00)
[2024-11-16] MEDS ORDERED: METOPROLOL SUCCINATE XL 50 MG TAB PO SCH (10:00)
== END 2024-11-15 13:55 | disposition left against medical advice (07) | DRG 184 ==
LOC: EDBD 03:20 → ER 03:20 → TELE 08:42
PROVIDERS: ADMIT Nurse Practitioner Family; ATTEND Nurse Practitioner Family
DX: S22.42XA Multiple fractures of ribs, left side, initial encounter for closed fracture (principal); I48.92 Unspecified atrial flutter; E11.649 Type 2 diabetes mellitus with hypoglycemia without coma; E03.9 Hypothyroidism, unspecified; E11.22 Type 2 diabetes mellitus with diabetic chronic kidney disease; E78.5 Hyperlipidemia, unspecified; R16.0 Hepatomegaly, not elsewhere classified; N20.0 Calculus of kidney; I25.10 Atherosclerotic heart disease of native coronary artery without angina pectoris; Z53.29 Procedure and treatment not carried out because of patient's decision for other reasons; K44.9 Diaphragmatic hernia without obstruction or gangrene; W01.0XXA Fall on same level from slipping, tripping and stumbling without subsequent striking against object, initial encounter; M10.9 Gout, unspecified; N18.30 Chronic kidney disease, stage 3 unspecified; I49.3 Ventricular premature depolarization; I12.9 Hypertensive chronic kidney disease with stage 1 through stage 4 chronic kidney disease, or unspecified chronic kidney disease; Z98.61 Coronary angioplasty status; Z87.442 Personal history of urinary calculi; Z79.4 Long term (current) use of insulin; Y92.002 Bathroom of unspecified non-institutional (private) residence as the place of occurrence of the external cause; Z79.891 Long term (current) use of opiate analgesic; Z79.899 Other long term (current) drug therapy; Z79.1 Long term (current) use of non-steroidal anti-inflammatories (NSAID); I25.2 Old myocardial infarction; Y93.89 Activity, other specified; Y99.8 Other external cause status
CPT/HCPCS: 36415; 70450; 71250; 80053; 80061; 81001; 82962; 83036; 83735; 83880; 84443; 84484; 85025; 85610; 85730; 93005; 93886; 96374; 99291; G0378; J1815

== ENCOUNTER 2025-06-26 21:16 | Inpatient (IN) | payer MEDICARE, MEDICAID ==
[~2025-06-26] VITALS: Ht 180.3 cm; Wt 81.3 kg
[2025-06-26 21:16] VITALS: PULSE 113; RESP 21; O2SAT 97
[~2025-06-26 21:16] MED LIST changes: +ALLO300T2 PO; -HYDR-4798 PO; +LEVO125T7 PO; -LEVO500T91 PO; +LOSA-535 PO; +MET25T PO; +METH-928 PO
[2025-06-26] MEDS: SODIUM CHLORIDE 0.9% 1,000 ML IV ONE (21:30)
--- NOTE | 2025-06-26 21:31 | ED.PDOC ---
CPR-HPI HPI Comments This is an 79 year-old male with a PMHX of CHF and AL, who presents to the ED via EMS for cardiac arrest. Per EMS, patient had substernal chest pain since 1300 today, with associated symptoms of N/V, since worsening. Per EMS, upon arrival, patient had an EKG done and it showed STEMI. Patient then collapsed and went into pulseless V-Tach. CPR was initiated with 90 second chest compressions and 200J shock via defibrillator was administered. Patient was at [facility] and given X1 round of Epi. Patient's son additionally reports that the patient had an angiogram done X1 month ago with no abnormalities identified. Upon ED arrival, patient has spontaneous respirations and is A&Ox3 with a HR of 112. Cardiology was called at this time. REVIEW OF SYSTEMS: General: No fever, no chills, no fatigue HEENT: No sore throat, no earache, no congestion, no neck pain. Cardiac: Positive Cardiac Arrest. , Chest pain Lungs: No shortness of breath, no cough. GI: No nausea, no vomiting, no diarrhea, no constipation, no abdominal pain : No dysuria, frequency, or urgency. No hematuria. Musculoskeletal: Positive joint pain , no joint swelling, no extremity edema. Skin: No rash, no itching. Neuro: No headache, dizziness, or weakness PHYSICAL EXAM: General: Awake, alert and oriented. No acute distress. Skin: Skin in warm, dry and intact. Appropriate color for ethnicity. HEENT: The head is normocephalic and atraumatic. Conjunctivae are clear without exudates or hemorrhage. Sclera is non-icteric. EOM are intact. No signs of nystagmus. Eyelids are normal in appearance without swelling or lesions. Oral mucosa is pink and moist Neck: The neck is supple with painful range of motion. No JVD. Cardiac: Tachycardic, regular rhythm. No murmus Respiratory: No signs of respiratory distress. Lung sounds are clear in all lobes bilaterally without rales, rhonchi, or wheezes. Abdominal: Abdomen is soft, non-tender without distention, guarding or rigidity. Bowel sounds are present and normoactive in all four quadrants. Extremities: Upper and lower extremities are atraumatic in appearance without deformity or edema. Neurological: The patient is awake, alert and oriented to person, place, and valentino e with normal speech. Speech is clear. There is no facial asymmetry. Psychiatric: Appropriate mood and affect. Good judgement and insight. Chief Complaint: Cardiac Arrest Time Seen by MD: 21:12 Primary Care Provider: FILIPE Brar Notes: Building Materials Sales Attendant Notes, Medications, Allergies Allergies: Coded Allergies: Rivaroxaban (Verified Allergy, Unknown, 06/26/25) Home Meds Reported Medications Methenamine Hippurate (Methenamine Hippurate) 1 Gm Tab, 1 TAB PO BID 11/15/24 Levothyroxine Sodium (Levothyroxine Sodium) 125 Mcg Tab, 1 TAB PO DAILY 11/15/24 Allopurinol (Allopurinol) 300 Mg Tab, 1 TAB PO DAILY 11/15/24 Losartan Potassium (Losartan Potassium) 100 Mg Tab, 1 TAB PO DAILY 11/15/24 Metoprolol Tartrate (Lopressor) 25 Mg Tb, 1 TAB PO BID 11/15/24 Information Source: Emergency Med Personnel Mode of Arrival: EMS Timing: Minutes Inital rhythm: V-tach Treatment: CPR, Defibrillation Past Medical History PAST MEDICAL HISTORY: DM, HTN, Kidney Stones, AL Family History Family History: Reviewed,noncontributory to illness Social History Smoker: Non-Smoker Alcohol: Denies ETOH Use Drugs: Denies Drug Use Lives In: Home EKG EKG : Pulse Rate (adult): 112 Comments Ectopic Atrial Tachycardic; Ventric Premature Complex, ST Depression V1-V3 Was a procedure done? Was a procedure done?: No Differential Dx CPR Differential Diagnosis: Cardiopulmonary arrest X-Ray, Labs, Meds, VS Vital Signs Date Time Temp Pulse Resp B/P (MAP) Pulse Ox O2 Delivery O2 Flow Rate FiO2 06/27/25 02:45 85 19 106/65 (79) 96 06/27/25 02:30 86 17 108/63 (78) 96 06/27/25 02:15 88 19 113/67 (82) 97 06/27/25 02:00 16 96 Nasal Cannula* 4 36 06/27/25 02:00 86 17 117/68 (84) 97 06/27/25 02:00 106/63 06/27/25 02:00 89 06/27/25 01:45 89 16 119/66 (83) 97 06/27/25 01:36 98.0 87 16 108/63 (78) 96 98.0 06/27/25 01:36 87 16 96 Nasal Cannula* 4 36 06/27/25 01:30 89 17 113/67 (82) 97 06/27/25 01:15 89 16 106/59 (75) 97 06/27/25 01:00 88 19 113/67 (82) 96 06/26/25 21:34 111 06/26/25 21:32 113 23 94/58 06/26/25 21:31 112 06/26/25 21:22 97.5 120 22 90/64 98 97.5 06/26/25 21:16 113 21 97 Non-Rebreather 15 N/A 06/26/25 21:16 97.5 113 21 92/60 (71) 97 97.5 06/26/25 21:16 112 Lab Test 06/26/25 23:46 06/26/25 21:20 Range/Units Lactic Acid Level 3.2 *H 2.3 *H 0.4-2.0 mmol/L Troponin I High Sensitivity 6515 *H 16 </=54 ng/L White Blood Count 10.0 4.4-10.8 10^3/uL Red Blood Count 4.04 L 4.5-5.90 10^6/uL Hemoglobin 11.6 L 13.5-17.5 g/dL Hematocrit 35.0 L 41.0-53.0 % Mean Corpuscular Volume 86.7 80.0-100.0 fL Mean Corpuscular Hemoglobin 28.8 28.0-32.0 pg Mean Corpuscular Hemoglobin Concent 33.2 32.0-36.0 g/dL Red Cell Distribution Width 15.4 H 11.8-14.3 % Platelet Count 155 140-450 10^3/uL Mean Platelet Volume 7.9 6.9-10.8 fL Neutrophils (%) (Auto) 69.3 37.0-80.0 % Lymphocytes (%) (Auto) 24.5 10.0-50.0 % Monocytes (%) (Auto) 4.9 0.0-12.0 % Eosinophils (%) (Auto) 1.1 0.0-7.0 % Basophils (%) (Auto) 0.2 0.0-2.0 % Neutrophils # (Auto) 6.9 1.6-8.6 10 ^3/uL Lymphocytes # (Auto) 2.4 0.4-5.4 10 ^3/uL Monocytes # (Auto) 0.5 0-1.3 10 ^3/uL Eosinophils # (Auto) 0.1 0-0.8 10 ^3/uL Basophils # (Auto) 0 0-0.2 10 ^3/uL Nucleated Red Blood Cells 0.1 % Prothrombin Time 12.1 H 9.3-11.8 sec Prothrombin Time INR 1.16 H 0.9-1.15 Sodium Level 144 136-145 mmol/L Potassium Level 2.5 *L 3.5-5.1 mmol/L Chloride Level 116 H 98-107 mmol/L Carbon Dioxide Level 16 L 20-31 mmol/L Anion Gap 12 5-15 Blood Urea Nitrogen 18 9-23 mg/dL Creatinine 1.11 0.700-1.30 mg/dL Glomerular Filtration Rate Calc 67 >90 mL/min BUN/Creatinine Ratio 16.2 10.0-20.0 Serum Glucose 128 H 74-106 mg/dL Calcium Level 6.1 L 8.7-10.4 mg/dL Total Bilirubin 0.4 0.2-1.0 mg/dL Aspartate Amino Transferase (AST) 24 13-40 U/L Alanine Aminotransferase (ALT) 16 7-40 U/L Alkaline Phosphatase 55 46-116 U/L B-Type Natriuretic Peptide 46.21 0-100 pg/mL Total Protein 5.0 L 5.7-8.2 g/dL Albumin 2.8 L 3.2-4.8 g/dL Microbiology Date/Time Source Procedure Growth Status 06/27/25 01:36 Nose MRSA Screen - Final Complete [place] [address] Ph: [phone] DIAGNOSTIC IMAGING Diagnostic Imaging Report : [id number] Signed PATIENT: MURRAY VALDEZ ACCT: [id number] UNIT: [id number] : 1945 LOC: ER ROOM / BED: / AGE / SEX: 79 / M ADM STATUS: REG ER SERVICE 24 ORDERING PHYSICIAN: PIETER HUSSEIN MD PROCEDURE(s): CXRP - CHEST PORTABLE REASON: chest pain ORDER NUMBER(s): [id number], ACCESSION NUMBER(s): [id number] CHEST RADIOGRAPH Indication: chest pain Technique: Single frontal view of the chest was obtained Comparison: CT chest 11/15/2024 FINDINGS: Lines and Tubes: None Lungs: No focal consolidation. Redemonstration of large left-sided diaphragmatic hernia Pleura: No effusion. No pneumothorax. Cardiomediastinal contours: Limited evaluation of the Heart size due to large left-sided diaphragmatic hernia. Bones: No acute osseous abnormality. IMPRESSION: No acute cardiopulmonary disease. Redemonstration of large left-sided diaphragmatic hernia limiting evaluation of the heart size X-Ray, Labs, Meds, VS Comment I spoke with Dr. Maloney at 2117. Code STEMI was called at this time. Dr. Maloney ordered to start the patient on Heparin Bolus, no drip. Patient was given Aspirin and 1L Bolus. I spoke again with Dr. Maloney at 2144 regarding multiple PVCs on the quality assurance monitor body. He recommends starting patient on 75 mg lidocaine Bolus and 2mg per min drip. Images Reviewed?: Images reviewed and evaluated by me Time of 1ST Reevaluation: 21:18 Reevaluation 1ST: Unchanged (Code STEMI was called at this time. Dr. Maloney ordered to start the patient on Heparin Bolus, no drip. Patient was given Aspirin and 1L Bolus. ) Time of 2ND Reevaluation: 21:45 Reevaluation 2ND: Unchanged (I spoke with Dr. Maloney regarding multiple PVCs on the quality assurance monitor body. He recommends starting patient on 75 mg lidocaine Bolus and 2mg per min drip. ) Consultation: Cardiology Patient Education/Counseling: Diagnosis, Treatment Family Education/Counseling: Diagnosis, Treatment Medical Screening: No EMC Exist At This Time SEPSIS Sepsis Screen Physician Orders Chest Portable (06/26/25 21:25) Electrocardigram (06/26/25 21:25) Electrocardigram (06/26/25 22:25) Electrocardigram (06/27/25 00:25) Cl Left Heart Cath (06/26/25 22:06) Ticagrelor (Brilinta) (06/27/25 10:00) Aspirin Tablet (06/27/25 10:00) Metoprolol Tartrate Tablet (Lopressor Ta (06/27/25 10:00) Losartan Tablet (Cozaar Tablet) (06/27/25 10:00) Morphine Sulfate Injection (06/27/25 01:45) Pantoprazole (Protonix) (06/27/25 10:00) Enoxaparin Sodium (Lovenox) (06/27/25 10:00) Nicotine 14mg/24hr (Nicoderm 14mg/24hr) (06/27/25 10:00) Cardiac Diet-2gna,Lofat,Lochol (06/27/25 Breakfast) Vital Signs Date Time Temp Pulse Resp B/P (MAP) Pulse Ox O2 Delivery O2 Flow Rate FiO2 06/27/25 02:45 85 19 106/65 (79) 96 06/27/25 02:30 86 17 108/63 (78) 96 06/27/25 02:15 88 19 113/67 (82) 97 06/27/25 02:00 16 96 Nasal Cannula* 4 36 06/27/25 02:00 86 17 117/68 (84) 97 06/27/25 02:00 106/63 06/27/25 02:00 89 06/27/25 01:45 89 16 119/66 (83) 97 06/27/25 01:36 98.0 87 16 108/63 (78) 96 98.0 06/27/25 01:36 87 16 96 Nasal Cannula* 4 36 06/27/25 01:30 89 17 113/67 (82) 97 06/27/25 01:15 89 16 106/59 (75) 97 06/27/25 01:00 88 19 113/67 (82) 96 06/26/25 21:34 111 06/26/25 21:32 113 23 94/58 06/26/25 21:31 112 06/26/25 21:22 97.5 120 22 90/64 98 97.5 06/26/25 21:16 113 21 97 Non-Rebreather 15 N/A 06/26/25 21:16 97.5 113 21 92/60 (71) 97 97.5 06/26/25 21:16 112 Laboratory Tests Test 06/26/25 21:20 06/26/25 23:46 Lactic Acid Level 2.3 mmol/L (0.4-2.0) *H 3.2 mmol/L (0.4-2.0) *H White Blood Count 10.0 10^3/uL (4.4-10.8) Departure 1 Departure Time of Disposition: 21:20 Impression: Primary Impression: STEMI (ST elevation myocardial infarction) Additional Impression: Cardiac arrest Disposition: ADMITTED INPATIENT Condition: Serious Comments MDM: 79 year old male arrived to the ED s/p CPR in the field by EMS. Patient was awake, alert in no respiratory distress on arrival to ED. He was found to have posterior inferior STEMI on EKG. He was started on Heparin and transferred to the cardiac catheterization lab. Extensive evaluation was performed in attempt to identify or rule out: (See differential diagnosis section) The following tests were ordered, and results were reviewed by me and discussed with patient: (See diagnostic results section) The following test were independently interpreted by me: EKG, CXR I reviewed and agreed with the following test results read by other providers: CXR Additional information was gathered from interviewing the following independent historians: EMS personnel, patient's son at bedside, patient's PCP Dr. Russell Discussion of management or test interpretation with external physician/other qualified health animal caretaker supervisor: Dr. Maloney Addressed an acute or chronic illness that poses a threat to life or bodily function: STEMI, cardiac arrest, Vtach Decision regarding hospitalization or escalation of hospital level of care: Risk and benefits of admission for further treatment of patient's condition was considered. Due to patient's current clinical condition, high risk of decline and poor outcome if discharged and need for further inpatient management and monitoring, patient will be admitted to the hospital. Drug therapy requiring intensive monitoring for toxicity: IV Heparin, IV lidocaine Parenteral controlled substances: IV morphine Decision regarding elective major surgery with identified patient or procedure risk factors: N/A Decision regarding emergency major surgery: N/A Decision not to resuscitate or to de-escalate care because of poor prognosis: N/A Diagnosis or treatment significantly limited by social determinants of health: N/A Critical Care Note Critical Care Time?: Yes (45 min-critical care time only) Heart Score Heart Score: Heart Score Response (Comments) Value History Highly Suspicious [address]-Deviation 2 Age >65 2 Risk Factors >3 or Hx ASHD 2 Troponin Normal limit 0 Total 8 Stability Stability form required: No I personally scribed for PIETER HUSSEIN MD (DVMINCH) on 06/26/25 at 21:31. Electronically submitted by Jeannine Ramos (RAMESH). I personally scribed for PIETER HUSSEIN MD (DVMINCH) on 06/26/25 at 21:35. Electronically submitted by Jeannine Ramos (RAMESH). I personally scribed for PIETER HUSSEIN MD (DVMINCH) on 06/26/25 at 21:37. Electronically submitted by Jeannine Ramos (RAMESH). I personally scribed for PIETER HUSSEIN MD (DVMINCH) on 06/26/25 at 21:38. Electronically submitted by Jeannine Ramos (RAMESH). I personally scribed for PIETER HUSSEIN MD (DVMINCH) on 06/26/25 at 22:08. Electronically submitted by Jeannine Ramos (RAMESH). I personally scribed for PIETER HUSSEIN MD (DVMINCH) on 06/26/25 at 22:12. Electronically submitted by Jeannine Ramos (RAMESH). I personally scribed for PIETER HUSSEIN MD (DVMINCH) on 06/26/25 at 23:14. Electronically submitted by Jeannine Ramos (RAMESH). I personally scribed for PIETER HUSSEIN MD (DVMINCH) on 06/27/25 at 01:16. Electronically submitted by Jeannine Ramos (RAMESH). PIETER HUSSEIN MD Jun 26, 2025 21:31
[2025-06-26] MEDS: MORPHINE SULFATE INJ 2 MG/ml SYRG IV ONE (21:32)
[2025-06-26] MEDS: HEPARIN SODIUM (PORCINE) 5000 UNITS/ML 1ML VIAL IV ONE (21:35)
[2025-06-26] MEDS: HEPARIN SODIUM (PORCINE) 5000 UNITS/ML 1ML VIAL ONE (21:35)
[2025-06-26] MEDS: MORPHINE SULFATE INJ 2 MG/ml SYRG ONE ×2 (21:36→21:37)
[2025-06-26 21:47] LABS: Hematocrit 35.0 % (41.0-53.0); Hemoglobin 11.6 g/dL (13.5-17.5); Mean Corpuscular Hemoglobin 28.8 pg (28.0-32.0); Mean Corpuscular Volume 86.7 fL (80.0-100.0); Nucleated Red Blood Cells % 0.1 %
[2025-06-26 21:59] LABS: Alanine Aminotransferase 16 U/L (7-40); Alkaline Phosphatase 55 U/L (46-116); Anion Gap 12 (5-15); BUN/Creatinine Ratio 16.2 (10.0-20.0); Bilirubin, Total 0.4 mg/dL (0.2-1.0); Blood Urea Nitrogen 18 mg/dL (9-23); Sodium 144 mmol/L (136-145)
--- NOTE | 2025-06-26 22:01 | DVH ---
CHEST RADIOGRAPH Indication: chest pain Technique: Single frontal view of the chest was obtained Comparison: CT chest 11/15/2024 FINDINGS: Lines and Tubes: None Lungs: No focal consolidation. Redemonstration of large left-sided diaphragmatic hernia Pleura: No effusion. No pneumothorax. Cardiomediastinal contours: Limited evaluation of the Heart size due to large left-sided diaphragmati c hernia. Bones: No acute osseous abnormality. IMPRESSION: No acute cardiopulmonary disease. Redemonstration of large left-sided diaphragmatic hernia limiting evaluation of the heart size
[2025-06-26 22:08] LABS: INR 1.16 (0.9-1.15); Prothrombin Time 12.1 sec (9.3-11.8)
[2025-06-26] MEDS: HEPARIN IN NS 1000Units/500mL 1,500 ML ONE (22:13)
[2025-06-26] MEDS: LIDOCAINE 50MG/5ML INJ 5ML SYRINGE IV ONE (22:13)
[2025-06-26] MEDS: LIDOCAINE 2%HCL (LOCAL ANESTH.) INJ 20ML MDV ONE (22:14)
[2025-06-26] MEDS: LIDOCAINE 4MG/ML IV SOLN 500 ML IV SCH (22:14)
[2025-06-26 22:24] LABS: Albumin 2.8 g/dL (3.2-4.8); Calcium 6.1 mg/dL (8.7-10.4); Carbon Dioxide 16 mmol/L (20-31); Chloride 116 mmol/L (98-107); Glucose 128 mg/dL (74-106); Total Protein 5.0 g/dL (5.7-8.2)
[2025-06-26] MEDS: MIDAZOLAM HCL 2MG/2ML 2ml VIAL (1mg/ml) ONE (22:25)
[2025-06-26 22:31] LABS: Lactic Acid w/Reflex 2.3 mmol/L (0.4-2.0); Potassium 2.5 mmol/L (3.5-5.1)
[2025-06-26] MEDS: POTASSIUM CHL 20MEQ/100ML 100 ML IV SCH (23:00)
--- NOTE | 2025-06-26 23:04 | ECG ---
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
[2025-06-26] MEDS: NOREPINEPHRINE 8 MG/250ML KIT 250 ML IV ONE (23:06)
--- NOTE | 2025-06-26 23:06 | ECG ---
[facility] Test Date: 2025-06-26 Test Time: 21:16:57 Pat Name: MURRAY VALDEZ Department: Room: 0264 Gender: M Humanities Division Chair: vamsi : 1945 Requested By: PIETER HUSSEIN Order Number: [id number] Reading MD: Jules Bar Measurements Intervals [place] Rate: 112 P: -68 LA: 230 QRS: 63 QRSD: 85 T: 79 QT: 352 QTc: 481 Interpretive Statements Sinus or ectopic atrial tachycardia Ventricular premature complex Prolonged LA interval Inferoposterior infarct, acute (LCx) Lateral leads are also involved ST depression V1-V3, suggest recording posterior leads Electronically Signed On 06-27-2025 17:00:56 PDT by Jules Bar Please click the below link to view image of tracing.
[2025-06-27] VITALS (54 sets, daily range): BP systolic 93–130; BP diastolic 55–95; PULSE 79–111; RESP 12–25; TEMP 97.5–99.1; O2SAT 89–98
[2025-06-27] MEDS: POTASSIUM CHL 20 Meq TABLET PO ONE (01:39)
[2025-06-27] MEDS: MORPHINE SULFATE INJ 2 MG/ml SYRG ONE (01:40)
[2025-06-27] MEDS: IODIXANOL 320MG/ML 100ML BTL IV ONE (01:41)
[2025-06-27] MEDS: ANGIOMAX 250 MG VIAL IV ONE (01:42)
[2025-06-27] MEDS: SODIUM CHL 0.9% 50 ML ONE (01:42)
[2025-06-27] MEDS: fentaNYL CITRATE 100 MCG/2 ML VL ONE (01:42)
[2025-06-27] MEDS: EPTIFIBATIDE INJ (2MG/ML) 10ML VIAL IV ONE (01:43)
[2025-06-27] MEDS: TICAGRELOR 90 MG TAB ONE (01:43)
[2025-06-27] MEDS ORDERED: MORPHINE SULFATE INJ 2 MG/ml SYRG IV PRN ×2 (01:45)
--- NOTE | 2025-06-27 01:57 | DVHOP ---
DATE OF SURGERY: 06/26/2025 TECHNIQUES PERFORMED: * Code STEMI. * Insertion of a 6-Dutch arterial line from the right femoral artery under fluoroscopy. * Left coronary angiography. * Mechanical thrombectomy of left circumflex artery with the help of the Penumbra catheter. * Balloon angioplasty of the circumflex artery with 2.5 x 15 mm length semi-compliant balloon and made the artery size up to 2.78 mm in size. * Insertion of the GuideLiner to assist deployment of the stent. * Stenting and angioplasty of the mid region of the circumflex artery with 3.5 x 22 mm length Douglas [place] stent of BitWave and inflated to 17 atmospheres. The size of the stent was made up to 3.7 mm in size. * Intravascular ultrasound of the left main and also of the circumflex artery. * Balloon angioplasty of the circumflex artery stent with 4.0 x 8 mm in length non-compliant balloon and inflated in the proximal, mid and distal region, made the artery size to 3.9 mm in size. * Intracoronary administration of nicardipine. Intracoronary administration of 10 mL of Integrilin bolus. * Right iliofemoral artery angiography. * Arteriotomy, Angio-Seal of the right femoral artery. * Management of conscious sedation. COMPLICATIONS: None. ASSISTANTS: Assisted by Rosangela Montoya Francisco, and He. The date of procedure performed 06/26 at 10:30 p.m. INDICATIONS: Code STEMI. Acute ST elevation noted inferiorly, laterally and tall R wave noted into the V2, V3. It was an acute inferior, lateral, posterior wall myocardial infarction. DESCRIPTION OF PROCEDURE: As follows: The risks and benefits had been discussed. Discussion done with his son, Johnathon, prior to bringing to quality lab assoc. Informed consent obtained. Right groin was shaved, cleaned with soap and Betadine. Lidocaine was given. IV Versed and fentanyl were given. A 6-Dutch arterial line was placed under fluoroscopy. Subsequently, we put XB 3.5 6-Dutch guiding catheter. We started Angiomax. IV Versed and fentanyl were given. A Runthrough wire was passed smoothly. Subsequently, we put a Penumbra catheter. Mechanical thrombectomy was done. Subsequently, we put a balloon 2.5 x 15, balloon angioplasty was done in the mid region of the circumflex artery. Artery opened up very well. Subsequently, we put a GuideLiner. With the help of the GuideLiner, we also put a stent, 3.5 x 22 mm length Jimmie [place] stent of BitWave deployed in the mid region of the circumflex artery, taken up to the 15 atmospheres,17 atmospheres. Stent size was made almost close to 3.7 mm in size gradually and inflated for 31 seconds and subsequently for 21 seconds. Balloon deflated, balloon had been discontinued and subsequently, we did intravascular ultrasound and followed by again the GuideLiner and then put a non-compliant balloon 4.0 and balloon angiography of the stent was done at proximal, mid and distal region, made the artery size to 3.9 mm in size, balloon deflated. The GuideLiner had been discontinued. Balloon had been discontinued. Intracoronary nicardipine, multiple doses were given. Intracoronary Integrilin was given 10 mL. Angiography was done. Result was satisfactory. There was no complication. The patient did well. Completely chest pain free and ST segment came back to normal. Vital signs were stable. The heart rate was stable. Subsequently, we had also done the right iliofemoral artery angiography, arteriotomy, Angio-Seal was done without any problem. Procedure went well. Brilinta was given 180 mg in the quality lab assoc. The patient's potassium was 2.6, was given IV potassium piggyback also started. CONCLUSION: Prior to performing the procedure #1, the left circumflex artery was a very large artery, appeared to be like a codominant type of the artery. Preprocedure, mid region had a plaque rupture, thrombus formation, subtotally occluded, ISABEL grade 2 flow, type C lesion. Postprocedure, 100% widely open, no spasm, no dissection, no thrombosis and the artery size was made up to 3.9 mm in size and ISABEL grade 3 flow had been noted. PLAN OF ACTION: As follows: At this time, the patient had been given Brilinta 180 mg in the quality lab assoc. Advised for aspirin. Integrilin 10 mL bolus the patient received intracoronary in the quality lab assoc. Advised for metoprolol. Advised for the Lipitor. The video film reviewed with the patient's son, Johnathon. The patient advised to follow up in my office after a few days, and I will also refer him to a higher level medical center. Electively, we will refer him if he can have the intervention on 100% occlusion of the right coronary artery. Advised for absolutely no smoking. Counseling has been provided. Eron Maloney MD MP/HEM TID: [id number] RECEIPT: [id number]
[2025-06-27] MEDS: NOREPINEPHRINE 8 MG/250ML KIT 250 ML IV SCH (02:30)
[2025-06-27] MEDS ORDERED: DEXTROSE (50%) 50ML SYRG IV PRN (03:00)
[2025-06-27] MEDS ORDERED: NITROGLYCERIN 0.4 MG SL TAB SL PRN (03:00)
--- NOTE | 2025-06-27 03:07 | DVHHP2 ---
History of Present Illness Reason for Visit: Cardiac arrest History of Present Illness 79-year-old male presents for evaluation of cardiac arrest. Patient developed chest pain yesterday and when EMS arrived EKG showed STEMI. Subsequently the patient collapsed and was found to be in pulseless V-tach. Patient had a round of epinephrine with CPR for 90 seconds with subsequent Vanlue. Patient arrived to the emergency department alert and oriented. Patient was taken to prosthetics lab technician in stable condition. Past Medical History IA, hypertension, diabetes mellitus Past Surgical History PTCA Family History Noncontributory Smoke: <1 pack per day ALCOHOL: none Drugs: None Lives: with Family Review of Systems Review of Systems Review of systems are currently negative otherwise addressed in HPI. Allergies: Coded Allergies: Rivaroxaban (Verified Allergy, Unknown, 06/26/25) Medications Current Medications Medications Dose Ordered Sig/Lizz Route Start Time Stop Time Status Last Admin Dose Admin Lidocaine HCl 500 ml @ 30 mls/hr [id number] IV 06/26/25 22:00 06/26/25 22:14 30 MLS/HR Ticagrelor 90 mg BID PO 06/27/25 10:00 Aspirin 81 mg DAILY PO 06/27/25 10:00 Metoprolol Tartrate 12.5 mg BID PO 06/27/25 10:00 Losartan Potassium 25 mg BID PO 06/27/25 10:00 Morphine Sulfate 2 mg Q4HPRN PRN IV 06/27/25 01:45 Morphine Sulfate 2 mg [id number] PRN IV 06/27/25 01:45 Pantoprazole Sodium 40 mg DAILY IV 06/27/25 10:00 Enoxaparin Sodium 40 mg DAILY SC 06/27/25 10:00 Nicotine 1 patch DAILY TD 06/27/25 10:00 Norepinephrine Bitartrate 250 ml @ 3.75 mls/hr Q24H IV 06/27/25 02:30 Exam Vital Signs Vital Signs Date Time Temp Pulse Resp B/P (MAP) Pulse Ox O2 Delivery O2 Flow Rate FiO2 06/27/25 01:36 98.0 87 16 108/63 (78) 96 98.0 06/27/25 01:36 Nasal Cannula* 4 36 Exam Gen: 79-year-old male in mild distress Skin: Warm, dry, normal color and texture, no rash. HEENT: Normocephalic atraumatic, mucous membranes moist and pink. Neck: Cervical and supraclavicular nodes normal without enlargement, trachea is midline, thyroid gland is normal without masses. Pulmonary: Clear to auscultation and percussion bilaterally. Cardiac: Regular rate and rhythm. No murmur Abdomen: Soft, nontender, nondistended, bowel sounds present all 4 quadrants, no guarding, no rigidity, no organomegaly. Extremities: No cyanosis, clubbing, no edema Neuro: Cranial nerves II through XII grossly intact, normal affect and speech, no focal motor deficits. Labs/Xrays ORDERING PHYSICIAN: PIETER HUSSEIN MD PROCEDURE(s): CXRP - CHEST PORTABLE REASON: chest pain ORDER NUMBER(s): [id number], ACCESSION NUMBER(s): [id number] CHEST RADIOGRAPH Indication: chest pain Technique: Single frontal view of the chest was obtained Comparison: CT chest 11/15/2024 FINDINGS: Lines and Tubes: None Lungs: No focal consolidation. Redemonstration of large left-sided diaphragmatic hernia Pleura: No effusion. No pneumothorax. Cardiomediastinal contours: Limited evaluation of the Heart size due to large left-sided diaphragmatic hernia. Bones: No acute osseous abnormality. IMPRESSION: No acute cardiopulmonary disease. Redemonstration of large left-sided diaphragmatic hernia limiting evaluation of the heart size Labs Test 06/26/25 23:46 06/26/25 21:20 Range/Units Lactic Acid Level 3.2 *H 0.4-2.0 mmol/L White Blood Count 10.0 4.4-10.8 10^3/uL Red Blood Count 4.04 L 4.5-5.90 10^6/uL Hemoglobin 11.6 L 13.5-17.5 g/dL Hematocrit 35.0 L 41.0-53.0 % Mean Corpuscular Volume 86.7 80.0-100.0 fL Mean Corpuscular Hemoglobin 28.8 28.0-32.0 pg Mean Corpuscular Hemoglobin Concent 33.2 32.0-36.0 g/dL Red Cell Distribution Width 15.4 H 11.8-14.3 % Platelet Count 155 140-450 10^3/uL Mean Platelet Volume 7.9 6.9-10.8 fL Neutrophils (%) (Auto) 69.3 37.0-80.0 % Lymphocytes (%) (Auto) 24.5 10.0-50.0 % Monocytes (%) (Auto) 4.9 0.0-12.0 % Eosinophils (%) (Auto) 1.1 0.0-7.0 % Basophils (%) (Auto) 0.2 0.0-2.0 % Neutrophils # (Auto) 6.9 1.6-8.6 10 ^3/uL Lymphocytes # (Auto) 2.4 0.4-5.4 10 ^3/uL Monocytes # (Auto) 0.5 0-1.3 10 ^3/uL Eosinophils # (Auto) 0.1 0-0.8 10 ^3/uL Basophils # (Auto) 0 0-0.2 10 ^3/uL Nucleated Red Blood Cells 0.1 % Prothrombin Time 12.1 H 9.3-11.8 sec Prothrombin Time INR 1.16 H 0.9-1.15 Sodium Level 144 136-145 mmol/L Potassium Level 2.5 *L 3.5-5.1 mmol/L Chloride Level 116 H 98-107 mmol/L Carbon Dioxide Level 16 L 20-31 mmol/L Anion Gap 12 5-15 Blood Urea Nitrogen 18 9-23 mg/dL Creatinine 1.11 0.700-1.30 mg/dL Glomerular Filtration Rate Calc 67 >90 mL/min BUN/Creatinine Ratio 16.2 10.0-20.0 Serum Glucose 128 H 74-106 mg/dL Calcium Level 6.1 L 8.7-10.4 mg/dL Total Bilirubin 0.4 0.2-1.0 mg/dL Aspartate Amino Transferase (AST) 24 13-40 U/L Alanine Aminotransferase (ALT) 16 7-40 U/L Alkaline Phosphatase 55 46-116 U/L B-Type Natriuretic Peptide 46.21 0-100 pg/mL Total Protein 5.0 L 5.7-8.2 g/dL Albumin 2.8 L 3.2-4.8 g/dL SEPSIS Sepsis Screen Date sepsis recognized/suspect: Jun 26, 2025 Time Sepsis recognized/suspect: 2128 Recent Procedure: No On Antibiotic Therapy: No Respiratory Rate >20: Yes Heart Rate >90: Yes Temp<36 C (96.8 F) or >38.3 C: No SBP <90 or MAP <65 mmHG: No New Acute Mental Status Change: Yes Is the patient on CPAP, BIPAP,: No Physician Orders Chest Portable (06/26/25 21:25) Troponin-I Hs (06/26/25 22:25) Electrocardigram (06/27/25 00:25) Lidocaine 4mg/Ml Iv Soln (Lidocaine Hcl (06/26/25 22:00) Cl Left Heart Cath (06/26/25 22:06) Ticagrelor (Brilinta) (06/27/25 10:00) Aspirin Tablet (06/27/25 10:00) Metoprolol Tartrate Tablet (Lopressor Ta (06/27/25 10:00) Losartan Tablet (Cozaar Tablet) (06/27/25 10:00) Morphine Sulfate Injection (06/27/25 01:45) Morphine Sulfate Injection (06/27/25 01:45) Pantoprazole (Protonix) (06/27/25 10:00) Enoxaparin Sodium (Lovenox) (06/27/25 10:00) Nicotine 14mg/24hr (Nicoderm 14mg/24hr) (06/27/25 10:00) Cardiac Diet-2gna,Lofat,Lochol (06/27/25 Breakfast) Echo 2d Mode Cardiac Dop (06/27/25 08:00) Complete Blood Count (06/27/25 02:04) Comprehensive Metabolic Panel (06/27/25 02:04) Magnesium (06/27/25 02:04) Mrsa Screen (06/27/25 02:20) Norepinephrine 8 Mg/250ml Kit (Levophed) (06/27/25 02:30) Levothyroxine Tablet (Synthroid Tablet) (06/27/25 06:00) Atorvastatin (Lipitor) (06/27/25 22:00) Basic Metabolic Panel (06/27/25 04:00) Complete Blood Count (06/27/25 04:00) Glucose Blood (Accu-Chek Comfort Curve T (06/27/25 07:00) Mild Sliding Scale (06/27/25 07:00) Vital Signs Date Time Temp Pulse Resp B/P (MAP) Pulse Ox O2 Delivery O2 Flow Rate FiO2 06/27/25 01:36 98.0 87 16 108/63 (78) 96 98.0 06/27/25 01:36 87 16 96 Nasal Cannula* 4 36 06/26/25 21:34 111 06/26/25 21:32 113 23 94/58 06/26/25 21:31 112 06/26/25 21:22 97.5 120 22 90/64 98 97.5 06/26/25 21:16 113 21 97 Non-Rebreather 15 N/A 06/26/25 21:16 97.5 113 21 92/60 (71) 97 97.5 06/26/25 21:16 112 Laboratory Tests Test 06/26/25 21:20 06/26/25 23:46 Lactic Acid Level 2.3 mmol/L (0.4-2.0) *H 3.2 mmol/L (0.4-2.0) *H White Blood Count 10.0 10^3/uL (4.4-10.8) Medications Medications Dose Ordered Sig/Lizz Route Start Time Stop Time Status Last Admin Dose Admin Heparin Sodium (Porcine) 5,000 units ONCE ONCE IV 06/26/25 21:30 06/26/25 21:31 DC 06/26/25 21:35 5,000 UNITS Lidocaine HCl 75 mg ONCE ONCE IV 06/26/25 22:00 06/26/25 22:01 DC 06/26/25 22:13 75 MG Lidocaine HCl 500 ml @ 30 mls/hr [id number] IV 06/26/25 22:00 06/26/25 22:14 30 MLS/HR Morphine Sulfate 1 mg ONCE ONCE IV 06/26/25 21:30 06/26/25 21:31 DC 06/26/25 21:32 1 MG Sodium Chloride 1,000 ml @ 1,000 mls/hr Q1H ONCE IV 06/26/25 21:30 06/26/25 22:29 DC 06/26/25 21:30 1,000 MLS/HR Assessment/Plan Assessment/Plan Assessment NSTEMI Diabetes mellitus Hypotension Thyroid Plan Admit the patient to ICU to the hospitalist Continue vasoactive drips as needed Resume home medications Continue treatment per orders Total critical care time excluding procedures performed this 50 minutes. Plan discussed with: Patient My Orders Orders - RON GUEVARA AGACNP Procedure Category Date Status Time Levothyroxine Tablet PHA 06/27/25 Verified (Synthroid Tablet) 06:00 Atorvastatin (Lipitor) PHA 06/27/25 Verified 22:00 Basic Metabolic Panel LAB 06/27/25 Verified 04:00 Complete Blood Count LAB 06/27/25 Verified 04:00 Glucose Blood PHA 06/27/25 Verified (Accu-Chek Comfort 07:00 Mild Sliding Scale PHA 06/27/25 Verified 07:00 Date of Service: Jun 27, 2025 Billing Provider: RON GUEVARA Common Visit Codes: [id number] CARE 30-74 MIN RON GUEVARA Jun 27, 2025 03:07
[2025-06-27] MEDS: ONDANSETRON HCL 4 MG/2 ML VIAL ONE (03:14)
[2025-06-27] MEDS ORDERED: ONDANSETRON HCL 4 MG/2 ML VIAL IV PRN (03:15)
[2025-06-27] MEDS ORDERED: ONDANSETRON HCL 4 MG/2 ML VIAL IM PRN ×2 (03:15)
[2025-06-27] MEDS: ONDANSETRON HCL 4 MG/2 ML VIAL IV PRN (03:17)
[2025-06-27] MEDS: MORPHINE SULFATE INJ 2 MG/ml SYRG IV PRN (03:18)
[2025-06-27 05:38] LABS: Hematocrit 37.1 % (41.0-53.0); Hemoglobin 12.4 g/dL (13.5-17.5); Mean Corpuscular Hemoglobin 28.8 pg (28.0-32.0); Mean Corpuscular Volume 86.2 fL (80.0-100.0); Nucleated Red Blood Cells % 0.0 %
[2025-06-27 05:44] LABS: Alanine Aminotransferase 35 U/L (7-40); Albumin 3.8 g/dL (3.2-4.8); Alkaline Phosphatase 75 U/L (46-116); Anion Gap 10 (5-15); BUN/Creatinine Ratio 15.1 (10.0-20.0); Blood Urea Nitrogen 22 mg/dL (9-23); Carbon Dioxide 22 mmol/L (20-31); Chloride 107 mmol/L (98-107); Magnesium 2.1 mg/dL (1.6-2.6); Potassium 4.7 mmol/L (3.5-5.1); Sodium 139 mmol/L (136-145); Total Protein 6.7 g/dL (5.7-8.2)
[2025-06-27 05:45] LABS: Bilirubin, Total 0.7 mg/dL (0.2-1.0)
[2025-06-27 05:56] LABS: Calcium 8.5 mg/dL (8.7-10.4); Glucose 222 mg/dL (74-106)
[2025-06-27] MEDS: LEVOTHYROXINE SODIUM 50 MCG TAB PO SCH (06:13)
[2025-06-27] MEDS: InsuLIN REG 1unit/0.01ml Soln (100units/ml) SC SCH (06:22)
[2025-06-27] MEDS: ACCU-CHEK COMFORT CURVE STRIP VI SCH (06:27)
--- NOTE | 2025-06-27 08:11 | DVHOP ---
DATE OF SURGERY: 06/26/2025 TECHNIQUES PERFORMED: * Code STEMI. * Insertion of 6-Cymraes arterial line from the right femoral artery under fluoroscopic guidance. * Left heart cath. * Left ventriculogram. * [place] selective left and right coronary artery angiography. ASSISTANTS: Assisted by Rosangela Montoya Francisco and Steve. INDICATIONS: Code STEMI was called, as inferior lateral wall ST elevation, ST depression noted, V1 to V3, suggestive of acute inferior posterior wall myocardial infarction. The patient also had cardiac CPR and electrical cardioversion. The patient has a history of previous coronary stent x 2 in 2014 in [facility] in [place], [place]. History of current smoking also. History of hypertension also. DESCRIPTION OF PROCEDURE: Risks and benefits discussed. Discussed with the patient's son procedure also. His name is Johnathon and the patient was brought urgently to the catheter builder. Right groin was shaved, cleaned with soap and Betadine. A 6-Cymraes arterial line had been placed under fluoroscopy guidance JL4, left coronary angio done with the help of the JL4 catheter, the right angiogram done with the help of the pigtail catheter. At the end of the procedure, left heart cath and left ventriculogram was done with the help of the pullthrough technique. The aortic pressure was also having done. The procedure was completed. There were no complications. IMPRESSION: * Normal left main. * Left anterior descending artery, diffuse plaque has been noted and there has been diffuse disease without any specific stenosis. The diagonal artery also with diffuse disease without any specific stenosis. * Circumflex artery is a very large artery, almost more than 3.75 mm in size. Obtuse marginal artery also normal. * The circumflex artery in the mid region has a thrombus formation, subtotally occluded, ISABEL grade 2 flow. The length of the stenosis and the thrombus is at least in the range of 18 mm in length. The thrombus has a flow through mid-distal region of the circumflex artery. * The right coronary artery is filling retrogradely with the help of the left coronary system all the way to his distal one-third region. * The right coronary artery is a dominant artery. Right coronary artery is 100% occluded at its proximal one-third region. ISABEL grade 0 flow. * The ejection fraction of the left ventricular is in the range of 20%. Inferior wall has been remarkably hypokinetic. Dilated left ventricle. Anterior wall motion is normal. PLAN OF ACTION: The plan of action is as follows at this time: We are going to do intervention on circumflex artery at this time. The time of the procedure is at 10:30 p.m. on 06/26/2025. Eron Maloney MD MP/KENDRICK/ZENY/BRIDGET TID: [id number] RECEIPT: [id number] [facility]
[2025-06-27] MEDS: NICOTINE 14 MG/24HR TOPICAL PATCH TD SCH (10:00)
[2025-06-27] MEDS: METOPROLOL TARTRATE 25 MG TAB PO SCH (10:35)
[2025-06-27] MEDS: PANTOPRAZOLE 40 MG/10 ML VIAL INJ IV SCH (10:37)
[2025-06-27] MEDS: LOSARTAN POTASSIUM 25 MG TAB PO SCH (10:43)
[2025-06-27] MEDS: AMIODARONE HCL 200 MG TAB PO SCH (10:52)
[2025-06-27] MEDS: TICAGRELOR 90 MG TAB PO SCH (11:35)
[2025-06-27] MEDS: ENOXAPARIN SOD 40 MG/0.4 ML SYRINGE SC SCH (11:35)
--- NOTE | 2025-06-27 14:08 | DVHPN2 ---
Subjective Seen at bedside, doing well Reviewed: H&P Changes from previous H/P or p: No Changes General: Per HPI Objective Vitals Vital Signs Date Time Temp Pulse Resp B/P (MAP) Pulse Ox O2 Delivery O2 Flow Rate FiO2 06/27/25 11:42 89 114/70 06/27/25 10:00 21 96 Nasal Cannula* 3 32 06/27/25 04:00 97.5 97.5 Intake/Output Intake and Output 06/27/25 07:00 Intake Total 217.50 ml Output Total 150 ml Balance 67.50 ml Intake Oral 0 ml IV Total 217.50 ml Output Emesis 150 ml # Voids 1 Exam GEN: Healthy appearing, well-developed, NAD. HEENT: NC/AT; MMM. CV: RRR, no m/r/g. LUNGS: CTAB, no w/r/c. ABD: Soft, NT/ND, NBS, no masses or organomegaly. EXT: skin Warm, well perfused. no rashes. No clubbing, cyanosis, or edema. NEURO: Ambulating with no limitations. No focal deficits. Medications Current Medications Medications Dose Ordered Sig/Lizz Route Start Time Stop Time Status Last Admin Dose Admin Ticagrelor 90 mg BID PO 06/27/25 10:00 06/27/25 11:35 90 MG Aspirin 81 mg DAILY PO 06/27/25 10:00 06/27/25 10:36 81 MG Metoprolol Tartrate 12.5 mg BID PO 06/27/25 10:00 06/27/25 10:35 12.5 MG Losartan Potassium 25 mg BID PO 06/27/25 10:00 06/27/25 10:43 25 MG Morphine Sulfate 2 mg Q4HPRN PRN IV 06/27/25 01:45 Pantoprazole Sodium 40 mg DAILY IV 06/27/25 10:00 06/27/25 10:37 40 MG Enoxaparin Sodium 40 mg DAILY SC 06/27/25 10:00 06/27/25 11:35 40 MG Nicotine 1 patch DAILY TD 06/27/25 10:00 Norepinephrine Bitartrate 250 ml @ 3.75 mls/hr Q24H IV 06/27/25 02:30 Levothyroxine Sodium 125 mcg QAM@0600 PO 06/27/25 06:00 06/27/25 06:13 125 MCG Atorvastatin Calcium 40 mg HS PO 06/27/25 22:00 Diagnostic Test (Pha) 1 strip ACHS 06/27/25 07:00 06/27/25 11:35 1 STRIP Insulin Human Regular ACHS SC 06/27/25 07:00 06/27/25 11:39 4 UNITS Dextrose 50 ml UD PRN IV 06/27/25 03:00 Acetaminophen/ Hydrocodone Bitart 1 tab Q4HP PRN PO 06/27/25 03:00 Ondansetron HCl 4 mg Q4HP PRN IV 06/27/25 03:00 06/27/25 03:17 4 MG Acetaminophen 650 mg Q6HP PRN PO 06/27/25 03:00 Nitroglycerin 0.4 mg Q5MINP PRN SL 06/27/25 03:00 Morphine Sulfate 2 mg Q30M PRN IV 06/27/25 03:00 06/27/25 03:18 2 MG Ondansetron HCl 4 mg Q4HP PRN IV 06/27/25 03:15 UNV Amiodarone HCl 200 mg DAILY PO 06/27/25 10:15 06/27/25 10:52 200 MG Laboratory Results Laboratory Tests 06/27/25 04:35 Chemistry Test 06/26/25 21:20 06/27/25 04:35 Albumin 2.8 g/dL (3.2-4.8) L 3.8 g/dL (3.2-4.8) Calcium Level 6.1 mg/dL (8.7-10.4) L 8.5 mg/dL (8.7-10.4) L Total Protein 5.0 g/dL (5.7-8.2) L 6.7 g/dL (5.7-8.2) Magnesium Level 2.1 mg/dL (1.6-2.6) Coagulation Test 06/26/25 21:20 Prothrombin Time 12.1 sec (9.3-11.8) H Prothrombin Time INR 1.16 (0.9-1.15) H Cardiac Markers Test 06/26/25 21:20 B-Type Natriuretic Peptide 46.21 pg/mL (0-100) LFT Test 06/26/25 21:20 06/27/25 04:35 Alanine Aminotransferase (ALT) 16 U/L (7-40) 35 U/L (7-40) Alkaline Phosphatase 55 U/L (46-116) 75 U/L (46-116) Aspartate Amino Transferase (AST) 24 U/L (13-40) 181 U/L (13-40) H Total Bilirubin 0.4 mg/dL (0.2-1.0) 0.7 mg/dL (0.2-1.0) Microbiology Microbiology Date/Time Source Procedure Growth Status 06/27/25 01:36 Nose MRSA Screen - Final Complete Labs and/or images reviewed: Labs reviewed by me, Image(s) reviewed by me Assessment/Plan Assessment/Plan 06/27: Patient is seen, doing well with patient yesterday had nausea and likely was and has been sec patient is brought to DVT taken to cath block patient was put on lidocaine. haven to L cx. sp lidocaine, now amio. doing tell. 24hr no arrythmia, will deescalate to tele. continue meds. DAPT w lipitor. will reassess for Bblock and ACEi. STEMI s/p cardiac arrest ventricular tachycardia, pulseless, resolved hx CAD DM hypothyroid disease - amiodarone 200mg daily asapirn 81 lipitor 40 lovenox 40 Synthroid 125 mcg scale for diabetes pain tylenol, > norco> morphine. icu full code Plan discussed with: Patient My Orders Orders - JOVANI MEJÍA MD Procedure Category Date Status Time Transfer Orders XFER 06/27/25 Transmitted 13:10 Date of Service: Jun 27, 2025 Billing Provider: JOVANI MEJÍA MD Common Visit Codes: [id number] CARE 30-74 MIN JOVANI MEJÍA MD Jun 27, 2025 14:08
[2025-06-27 20:12] LABS: Urine Protein, UAD 1+ (Negative); Urine WBC Clumps PRESENT /hpf (None Seen)
--- NOTE | 2025-06-27 20:46 | DVHINCON2 ---
Date of service: Jun 26, 2025 Referring Physician Ar Reason for Consultation STEMI History of Present Illness This is a 79 year old male with a PMH of CHF and previous NE brought in by EMS in cardiac arrest. Per EMS, patient had substernal chest pain since 1300 today, with associated symptoms of N/V. Upon EMS arrival, EKG showed STEMI. Patient then collapsed and went into pulseless V-Tach. CPR was initiated with 90 second chest compressions and 200J shock via defibrillator was administered. Patient had ROSC and given 1 round of Epi. EMS additionally reports that the patient had an echocardiogram done 1 month ago with no abnormalities identified. EKG upon arrival showed ST Depression V1-V3. Code STEMI was called and I evaluated the patient at bedside within a few minutes. Advised to start the patient on Heparin Bolus, Aspirin and 1L Bolus. Chest x-ray shows NAD. HEART score: 5. Patient will emergently be taken to general laborer and admitted to the ICU. Allergies: Coded Allergies: Rivaroxaban (Verified Allergy, Unknown, 06/26/25) Home Meds Reported Medications Methenamine Hippurate (Methenamine Hippurate) 1 Gm Tab, 1 TAB PO BID 11/15/24 Levothyroxine Sodium (Levothyroxine Sodium) 125 Mcg Tab, 1 TAB PO DAILY 11/15/24 Allopurinol (Allopurinol) 300 Mg Tab, 1 TAB PO DAILY 11/15/24 Losartan Potassium (Losartan Potassium) 100 Mg Tab, 1 TAB PO DAILY 11/15/24 Metoprolol Tartrate (Lopressor) 25 Mg Tb, 1 TAB PO BID 11/15/24 Current Medications Current Medications Medications (Trade) Dose Ordered Sig/Lizz Route PRN Reason Start Time Stop Time Status Last Admin Lidocaine HCl 500 ml @ 30 mls/hr [id number] IV 06/26/25 22:00 06/27/25 10:17 DC 06/26/25 22:14 Potassium Chloride 100 ml @ 50 mls/hr Q2H IV 06/26/25 23:00 06/27/25 02:59 DC Ticagrelor (Brilinta) 90 mg BID PO 06/27/25 10:00 06/27/25 11:35 Aspirin 81 mg DAILY PO 06/27/25 10:00 06/27/25 10:36 Metoprolol Tartrate (Lopressor Tablet) 12.5 mg BID PO 06/27/25 10:00 06/27/25 10:35 Losartan Potassium (Cozaar Tablet) 25 mg BID PO 06/27/25 10:00 06/27/25 10:43 Morphine Sulfate 2 mg Q4HPRN PRN IV SEVERE PAIN 06/27/25 01:45 Morphine Sulfate 2 mg [id number] PRN IV CHEST PAIN 06/27/25 01:45 06/27/25 03:05 DC Pantoprazole Sodium (Protonix) 40 mg DAILY IV 06/27/25 10:00 06/27/25 10:37 Enoxaparin Sodium (Lovenox) 40 mg DAILY SC 06/27/25 10:00 06/27/25 11:35 Nicotine (Nicoderm 14MG/ 24HR) 1 patch DAILY TD 06/27/25 10:00 Norepinephrine Bitartrate 250 ml @ 3.75 mls/hr Q24H IV 06/27/25 02:30 06/27/25 17:28 DC Levothyroxine Sodium (Synthroid Tablet) 125 mcg QAM@0600 PO 06/27/25 06:00 06/27/25 06:13 Atorvastatin Calcium (Lipitor) 40 mg HS PO 06/27/25 22:00 Diagnostic Test (Pha) (Accu-Chek Comfort Curve T) 1 strip ACHS 06/27/25 07:00 06/27/25 17:13 Insulin Human Regular (InsuLIN R) ACHS SC 06/27/25 07:00 06/27/25 17:20 Dextrose 50 ml UD PRN IV Blood Sugar LESS THAN 60 06/27/25 03:00 Acetaminophen/ Hydrocodone Bitart ([place] 5/325MG Tab) 1 tab Q4HP PRN PO MODERATE PAIN (4-6 PAIN SCALE) 06/27/25 03:00 Ondansetron HCl (Zofran) 4 mg Q4HP PRN IV NAUSEA / VOMITING 06/27/25 03:00 06/27/25 03:17 Acetaminophen (Tylenol Tablet) 650 mg Q6HP PRN PO PAIN SCALE 1-3 OR TEMP>100.4 06/27/25 03:00 Nitroglycerin (Ntrostat Sublingual) 0.4 mg Q5MINP PRN SL FOR CHEST PAIN 06/27/25 03:00 Morphine Sulfate 2 mg Q30M PRN IV FOR CHEST PAIN 06/27/25 03:00 06/27/25 03:18 Ondansetron HCl (Zofran) 4 mg Q4HP PRN IM NAUSEA / VOMITING 06/27/25 03:15 06/27/25 03:10 DC Ondansetron HCl (Zofran) 4 mg Q4HP PRN IM NAUSEA / VOMITING 06/27/25 03:15 06/27/25 03:13 DC Ondansetron HCl (Zofran) 4 mg Q4HP PRN IV NAUSEA / VOMITING 06/27/25 03:15 UNV Amiodarone HCl (Cordarone Tablet) 200 mg DAILY PO 06/27/25 10:15 06/27/25 10:52 Review of Systems General: No fever, no chills, no fatigue HEENT: No sore throat, no earache, no congestion, no neck pain. Cardiac: Positive Cardiac Arrest. Lungs: No shortness of breath, no cough. GI: No nausea, no vomiting, no diarrhea, no constipation, no abdominal pain : No dysuria, frequency, or urgency. No hematuria. Musculoskeletal: Positive joint pain , no joint swelling, no extremity edema. Skin: No rash, no itching. Neuro: No headache, dizziness, or weakness Vital Signs Vital Signs Date Time Temp Pulse Resp B/P (MAP) Pulse Ox O2 Delivery O2 Flow Rate FiO2 06/27/25 18:00 18 96 Nasal Cannula* 2 28 06/27/25 17:50 97.9 85 125/76 (92) 97.9 Physical Exam GENERAL: Alert and oriented x 3. No acute distress. EYES: PERRL, EOMI. Anicteric. HENT: Moist mucous membranes. LUNGS: Clear to auscultation bilaterally. CARDIOVASCULAR: Regular rate and rhythm. ABDOMEN: Soft, non-tender and non-distended. EXTREMITIES: No edema. NEUROLOGIC: No focal neurological deficits. SKIN: Warm, dry. Labs/Diagnostic Data Labs Test 06/27/25 19:34 06/27/25 17:11 06/27/25 04:35 06/26/25 23:46 Range/Units Urine Color Brown H Yellow Urine Clarity Ex.turbid Clear Urine pH 6.0 5.0-9.0 Urine Specific [place] 1.018 1.001-1.035 Urine Protein 1+ H Negative Urine Ketones Negative Negative Urine Blood 3+ H Negative /uL Urine Nitrite Negative Negative Urine Bilirubin Negative Negative Urine Urobilinogen Normal Negative mg/dL Urine Leukocyte Esterase 3+ Negative /uL Urine RBC 80 0 - 3 /hpf Urine WBC Clumps Present None Seen /hpf Urine Microscopic WBC 5023 H 0-3 /HPF Urine Squamous Epithelial Cells None seen <5 /hpf Urine Bacteria None seen None Seen /hpf Urine Glucose Normal Normal mg/dL POC Glucose 149 H 70-106 mg/dl White Blood Count 7.7 4.4-10.8 10^3/uL Red Blood Count 4.31 L 4.5-5.90 10^6/uL Hemoglobin 12.4 L 13.5-17.5 g/dL Hematocrit 37.1 L 41.0-53.0 % Mean Corpuscular Volume 86.2 80.0-100.0 fL Mean Corpuscular Hemoglobin 28.8 28.0-32.0 pg Mean Corpuscular Hemoglobin Concent 33.5 32.0-36.0 g/dL Red Cell Distribution Width 15.5 H 11.8-14.3 % Platelet Count 150 140-450 10^3/uL Mean Platelet Volume 7.7 6.9-10.8 fL Neutrophils (%) (Auto) 84.8 H 37.0-80.0 % Lymphocytes (%) (Auto) 8.7 L 10.0-50.0 % Monocytes (%) (Auto) 6.4 0.0-12.0 % Eosinophils (%) (Auto) 0.1 0.0-7.0 % Basophils (%) (Auto) 0.0 0.0-2.0 % Neutrophils # (Auto) 6.5 1.6-8.6 10 ^3/uL Lymphocytes # (Auto) 0.7 0.4-5.4 10 ^3/uL Monocytes # (Auto) 0.5 0-1.3 10 ^3/uL Eosinophils # (Auto) 0 0-0.8 10 ^3/uL Basophils # (Auto) 0 0-0.2 10 ^3/uL Nucleated Red Blood Cells 0.0 % Sodium Level 139 # 136-145 mmol/L Potassium Level 4.7 # 3.5-5.1 mmol/L Chloride Level 107 98-107 mmol/L Carbon Dioxide Level 22 20-31 mmol/L Anion Gap 10 5-15 Blood Urea Nitrogen 22 9-23 mg/dL Creatinine 1.46 H 0.700-1.30 mg/dL Glomerular Filtration Rate Calc 48 >90 mL/min BUN/Creatinine Ratio 15.1 10.0-20.0 Serum Glucose 222 H 74-106 mg/dL Calcium Level 8.5 L 8.7-10.4 mg/dL Magnesium Level 2.1 1.6-2.6 mg/dL Total Bilirubin 0.7 0.2-1.0 mg/dL Aspartate Amino Transferase (AST) 181 H 13-40 U/L Alanine Aminotransferase (ALT) 35 7-40 U/L Alkaline Phosphatase 75 46-116 U/L Total Protein 6.7 5.7-8.2 g/dL Albumin 3.8 3.2-4.8 g/dL Lactic Acid Level 3.2 *H 0.4-2.0 mmol/L Troponin I High Sensitivity 6515 *H </=54 ng/L Test 06/26/25 21:20 Range/Units Prothrombin Time 12.1 H 9.3-11.8 sec Prothrombin Time INR 1.16 H 0.9-1.15 B-Type Natriuretic Peptide 46.21 0-100 pg/mL Microbiology Date/Time Source Procedure Growth Status 06/27/25 01:36 Nose MRSA Screen - Final Complete Assessment STEMI. Acute inferior, lateral, posterior wall myocardial infarction. Diabetes mellitus. Hypotension. Plan/Recommendation I agree with your ongoing assessment and care of plan. Emergency cardiac cath. Risks and benefits discussed with the patient. Echocardiogram. Morphine and [place] for pain management. Amiodarone. Aspirin, Lipitor, Metoprolol. Heparin drip per pharmacy. Losartan. Nitro SL. GI prophylactics. Additional plan as per the hospital course. Critical care time of 90 minutes provided to include time spent evaluation of patient at bedside, when appropriate patient/family education for diagnosis, treatment plan, review of pertinent medical information and discussion of care with specialty providers and PCP. Plan discussed with: Patient JAMES MORIN MD Jun 27, 2025 20:46
[2025-06-27] MEDS: ATORVASTATIN 20 MG TAB PO SCH (22:19)
[2025-06-27] MEDS: HYDROcodone-ACET 5/325MG TAB PO PRN (22:20)
--- NOTE | 2025-06-27 23:54 | DVHPN2 ---
Progress Note - Dictate Date Seen: Jun 27, 2025 Medical Necessity Reason Pt with a Central, PICC or Fol: No Subjective Patient was seen and evaluated in follow up. Patient underwent left heart cath, [place] selective left and right coronary artery angiography. Left coronary angiography, mechanical thrombectomy of left circumflex artery with the help of the Penumb[place] catheter, balloon angioplasty of the circumflex artery, stenting and angioplasty of the mid region of the circumflex artery, balloon angioplasty of the circumflex artery stent. Prior to performing the procedure #1, the left circumflex artery was a very large artery, appeared to be like a codominant type of the artery. Preprocedure, mid region had a plaque rupture, thrombus formation, subtotally occluded, ISABEL grade 2 flow, type C lesion Postprocedure, 100% widely open, no spasm, no dissection, no thrombosis and the artery size was made up to 3.9 mm in size and ISABEL grade 3 flow had been noted. At this time, the patient had been given Brilinta 180 mg in the terrazzo laborer. Advised for aspirin. Integrilin 10 mL bolus the patient received intracoronary in the terrazzo laborer. Advised for metoprolol. Advised for the Lipitor. The video film reviewed with the patient's son, Johnathon. The patient advised to follow up in my office after a few days, and I will also refer him to a higher level medical center. Electively, we will refer him if he can have the intervention on 100% occlusion of the right coronary artery.Advised for absolutely no smoking. Counseling has been provided. DOCKING PILOT 1.46, CA 8.5, AST 181. Telemetry reviewed. vital signs Vital Sign Date Time Temp Pulse Resp B/P (MAP) Pulse Ox O2 Delivery O2 Flow Rate FiO2 06/27/25 18:00 18 96 Nasal Cannula* 2 28 06/27/25 17:50 97.9 85 125/76 (92) 97.9 Total Intake and Output 06/26/25 06/26/25 06/27/25 15:00 23:00 07:00 Intake Total 217.50 ml Output Total 150 ml Balance 67.50 ml medications Current Medications Medications Dose Ordered Sig/Lizz Route Start Time Stop Time Status Last Admin Dose Admin Ticagrelor 90 mg BID PO 06/27/25 10:00 06/27/25 11:35 90 MG Aspirin 81 mg DAILY PO 06/27/25 10:00 06/27/25 10:36 81 MG Metoprolol Tartrate 12.5 mg BID PO 06/27/25 10:00 06/27/25 10:35 12.5 MG Losartan Potassium 25 mg BID PO 06/27/25 10:00 06/27/25 10:43 25 MG Morphine Sulfate 2 mg Q4HPRN PRN IV 06/27/25 01:45 Pantoprazole Sodium 40 mg DAILY IV 06/27/25 10:00 06/27/25 10:37 40 MG Enoxaparin Sodium 40 mg DAILY SC 06/27/25 10:00 06/27/25 11:35 40 MG Nicotine 1 patch DAILY TD 06/27/25 10:00 Levothyroxine Sodium 125 mcg QAM@0600 PO 06/27/25 06:00 06/27/25 06:13 125 MCG Atorvastatin Calcium 40 mg HS PO 06/27/25 22:00 Diagnostic Test (Pha) 1 strip ACHS 06/27/25 07:00 06/27/25 17:13 1 STRIP Insulin Human Regular ACHS SC 06/27/25 07:00 06/27/25 17:20 2 UNITS Dextrose 50 ml UD PRN IV 06/27/25 03:00 Acetaminophen/ Hydrocodone Bitart 1 tab Q4HP PRN PO 06/27/25 03:00 Ondansetron HCl 4 mg Q4HP PRN IV 06/27/25 03:00 06/27/25 03:17 4 MG Acetaminophen 650 mg Q6HP PRN PO 06/27/25 03:00 Nitroglycerin 0.4 mg Q5MINP PRN SL 06/27/25 03:00 Morphine Sulfate 2 mg Q30M PRN IV 06/27/25 03:00 06/27/25 03:18 2 MG Ondansetron HCl 4 mg Q4HP PRN IV 06/27/25 03:15 UNV Amiodarone HCl 200 mg DAILY PO 06/27/25 10:15 06/27/25 10:52 200 MG objective GENERAL: Alert and oriented x 3. No acute distress. EYES: PERRL, EOMI. Anicteric. HENT: Moist mucous membranes. LUNGS: Clear to auscultation bilaterally. CARDIOVASCULAR: Regular rate and rhythm. ABDOMEN: Soft, nontender and nondistended. EXTREMITIES: No edema. NEUROLOGIC: No focal neurological deficits. SKIN: Warm, dry. laboratory and microbiology Laboratory Tests 06/27/25 04:35 Test 06/27/25 04:35 Range/Units Serum Glucose 222 H 74-106 mg/dL Problem List STEMI. Status post cardiac arrest. Ventricular tachycardia, pulseless, resolved. History of CAD. DM. Hypothyroid disease. Assessment/Plan Continued all current supportive medical care. Echocardiogram. Morphine and [place] for pin management. Amiodarone. Aspirin, Lipitor, Metoprolol, Brilinta. DVT and GI prophylactics. Losartan. Nitro SL. Additional plan as per the hospital course. Plan discussed with: Patient JAMES MORIN MD Jun 27, 2025 20:21
[2025-06-28] VITALS (7 sets, daily range): BP systolic 104–132; BP diastolic 65–73; PULSE 71–117; RESP 18–20; TEMP 97–98.4; O2SAT 96–98
--- NOTE | 2025-06-28 11:10 | DVHPN2 ---
Subjective Seen at bedside, doing well Reviewed: H&P Changes from previous H/P or p: No Changes General: Per HPI Objective Vitals Vital Signs Date Time Temp Pulse Resp B/P (MAP) Pulse Ox O2 Delivery O2 Flow Rate FiO2 06/28/25 10:23 132/65 06/28/25 10:23 71 06/28/25 09:00 97.4 20 98 97.4 06/27/25 20:00 Nasal Cannula* 3 32 Intake/Output Intake and Output 06/28/25 06:59 Intake Total 1220 ml Output Total 500 ml Balance 720 ml Intake Oral 1100 ml IV Total 120 ml Output Urine Total 500 ml # Voids 2 Exam GEN: Healthy appearing, well-developed, NAD. HEENT: NC/AT; MMM. CV: RRR, no m/r/g. LUNGS: CTAB, no w/r/c. ABD: Soft, NT/ND, NBS, no masses or organomegaly. EXT: skin Warm, well perfused. no rashes. No clubbing, cyanosis, or edema. NEURO: Ambulating with no limitations. No focal deficits. Medications Current Medications Medications Dose Ordered Sig/Lizz Route Start Time Stop Time Status Last Admin Dose Admin Ticagrelor 90 mg BID PO 06/27/25 10:00 06/28/25 10:21 90 MG Aspirin 81 mg DAILY PO 06/27/25 10:00 06/28/25 10:21 81 MG Metoprolol Tartrate 12.5 mg BID PO 06/27/25 10:00 06/28/25 10:23 12.5 MG Losartan Potassium 25 mg BID PO 06/27/25 10:00 06/28/25 10:23 25 MG Morphine Sulfate 2 mg Q4HPRN PRN IV 06/27/25 01:45 Pantoprazole Sodium 40 mg DAILY IV 06/27/25 10:00 06/27/25 10:37 40 MG Enoxaparin Sodium 40 mg DAILY SC 06/27/25 10:00 06/28/25 10:24 40 MG Nicotine 1 patch DAILY TD 06/27/25 10:00 Levothyroxine Sodium 125 mcg QAM@0600 PO 06/27/25 06:00 06/28/25 10:43 125 MCG Atorvastatin Calcium 40 mg HS PO 06/27/25 22:00 06/27/25 22:19 40 MG Diagnostic Test (Pha) 1 strip ACHS 06/27/25 07:00 06/28/25 06:53 1 STRIP Insulin Human Regular ACHS SC 06/27/25 07:00 06/27/25 17:20 2 UNITS Dextrose 50 ml UD PRN IV 06/27/25 03:00 Acetaminophen/ Hydrocodone Bitart 1 tab Q4HP PRN PO 06/27/25 03:00 06/28/25 03:03 1 TAB Ondansetron HCl 4 mg Q4HP PRN IV 06/27/25 03:00 06/27/25 03:17 4 MG Acetaminophen 650 mg Q6HP PRN PO 06/27/25 03:00 Nitroglycerin 0.4 mg Q5MINP PRN SL 06/27/25 03:00 Morphine Sulfate 2 mg Q30M PRN IV 06/27/25 03:00 06/27/25 03:18 2 MG Ondansetron HCl 4 mg Q4HP PRN IV 06/27/25 03:15 UNV Amiodarone HCl 200 mg DAILY PO 06/27/25 10:15 06/28/25 10:21 200 MG Laboratory Results Laboratory Tests 06/27/25 04:35 Urinalysis Test 06/27/25 19:34 Urine Color Brown (Yellow) H Urine Clarity Ex.turbid (Clear) Urine pH 6.0 (5.0-9.0) Urine Specific [place] 1.018 (1.001-1.035) Urine Protein 1+ (Negative) H Urine Ketones Negative (Negative) Urine Blood 3+ /uL (Negative) H Urine Nitrite Negative (Negative) Urine Bilirubin Negative (Negative) Urine Urobilinogen Normal mg/dL (Negative) Urine Leukocyte Esterase 3+ /uL (Negative) Urine RBC 80 /hpf (0 - 3) Urine WBC Clumps Present /hpf (None Seen) Urine Microscopic WBC 5023 /HPF (0-3) H Urine Squamous Epithelial Cells None seen /hpf (<5) Urine Bacteria None seen /hpf (None Seen) Urine Glucose Normal mg/dL (Normal) Microbiology Microbiology Date/Time Source Procedure Growth Status 06/27/25 01:36 Nose MRSA Screen - Final Complete Labs and/or images reviewed: Labs reviewed by me, Image(s) reviewed by me Assessment/Plan Assessment/Plan 06/27: Patient is seen, doing well with patient yesterday had nausea and likely was and has been sec patient is brought to DVT taken to cath block patient was put on lidocaine. haven to L cx. sp lidocaine, now amio. doing tell. 24hr no arrythmia, will deescalate to tele. continue meds. DAPT w lipitor. will reassess for Bblock and ACEi. 06/28: Patient is still having chest pain, we will provide binder, continue pain control, continue [place], morphine if needed. Keep on tele. Likely DC tomorrow once pain is improved. STEMI s/p cardiac arrest ventricular tachycardia, pulseless, resolved hx CAD DM hypothyroid disease - amiodarone 200mg daily asapirn 81 lipitor 40 lovenox 40 Synthroid 125 mcg scale for diabetes pain tylenol, > norco> morphine. tele full code Plan discussed with: Patient My Orders Orders - JOVANI MEJÍA MD Procedure Category Date Status Time Transfer Orders XFER 06/27/25 Transmitted 13:10 Date of Service: Jun 28, 2025 Billing Provider: JOVANI MEJÍA MD Common Visit Codes: [id number] INP/OBS CARE(HIGH) JOVANI MEJÍA MD Jun 28, 2025 11:10
[2025-06-28] MEDS: methylPREDNISolone SOD SUCC 40 MG/ML VL IV ONE (17:16)
[2025-06-28] MEDS: BACLOFEN 10 MG TAB PO SCH (17:17)
--- NOTE | 2025-06-28 22:15 | DVHPN2 ---
Progress Note - Dictate Date Seen: Jun 28, 2025 Medical Necessity Reason Pt with a Central, PICC or Fol: No Subjective Patient was seen and evaluated in follow up. No overnight events. Patient complains of generalized discomfort. BS elevated in the 270s. Telemetry reviewed. vital signs Vital Sign Date Time Temp Pulse Resp B/P (MAP) Pulse Ox O2 Delivery O2 Flow Rate FiO2 06/28/25 10:23 132/65 06/28/25 10:23 71 06/28/25 09:00 97.4 20 98 97.4 06/27/25 20:00 Nasal Cannula* 3 32 Total Intake and Output 06/27/25 06/27/25 06/28/25 15:00 23:00 07:00 Intake Total 90 ml 500 ml 600 ml Output Total 500 ml Balance 90 ml 0 ml 600 ml medications Current Medications Medications Dose Ordered Sig/Lizz Route Start Time Stop Time Status Last Admin Dose Admin Ticagrelor 90 mg BID PO 06/27/25 10:00 06/28/25 10:21 90 MG Aspirin 81 mg DAILY PO 06/27/25 10:00 06/28/25 10:21 81 MG Metoprolol Tartrate 12.5 mg BID PO 06/27/25 10:00 06/28/25 10:23 12.5 MG Losartan Potassium 25 mg BID PO 06/27/25 10:00 06/28/25 10:23 25 MG Morphine Sulfate 2 mg Q4HPRN PRN IV 06/27/25 01:45 Pantoprazole Sodium 40 mg DAILY IV 06/27/25 10:00 06/27/25 10:37 40 MG Enoxaparin Sodium 40 mg DAILY SC 06/27/25 10:00 06/28/25 10:24 40 MG Nicotine 1 patch DAILY TD 06/27/25 10:00 Levothyroxine Sodium 125 mcg QAM@0600 PO 06/27/25 06:00 06/28/25 10:43 125 MCG Atorvastatin Calcium 40 mg HS PO 06/27/25 22:00 06/27/25 22:19 40 MG Diagnostic Test (Pha) 1 strip ACHS 06/27/25 07:00 06/28/25 06:53 1 STRIP Insulin Human Regular ACHS SC 06/27/25 07:00 06/27/25 17:20 2 UNITS Dextrose 50 ml UD PRN IV 06/27/25 03:00 Acetaminophen/ Hydrocodone Bitart 1 tab Q4HP PRN PO 06/27/25 03:00 06/28/25 03:03 1 TAB Ondansetron HCl 4 mg Q4HP PRN IV 06/27/25 03:00 06/27/25 03:17 4 MG Acetaminophen 650 mg Q6HP PRN PO 06/27/25 03:00 Nitroglycerin 0.4 mg Q5MINP PRN SL 06/27/25 03:00 Morphine Sulfate 2 mg Q30M PRN IV 06/27/25 03:00 06/27/25 03:18 2 MG Ondansetron HCl 4 mg Q4HP PRN IV 06/27/25 03:15 UNV Amiodarone HCl 200 mg DAILY PO 06/27/25 10:15 06/28/25 10:21 200 MG objective GENERAL: Alert and oriented x 3. No acute distress. EYES: PERRL, EOMI. Anicteric. HENT: Moist mucous membranes. LUNGS: Clear to auscultation bilaterally. CARDIOVASCULAR: Regular rate and rhythm. ABDOMEN: Soft, nontender and nondistended. EXTREMITIES: No edema. NEUROLOGIC: No focal neurological deficits. SKIN: Warm, dry. laboratory and microbiology Laboratory Tests 06/27/25 04:35 Test 06/27/25 04:35 Range/Units Serum Glucose 222 H 74-106 mg/dL Problem List STEMI. Status post cardiac arrest. Ventricular tachycardia, pulseless, resolved. History of CAD. DM. Hypothyroid disease. Assessment/Plan Continued all current supportive medical care. Echocardiogram. Morphine and [place] for pin management. Amiodarone. Aspirin, Metoprolol, Brilinta. DVT prophylactics. Losartan. Nitro SL. Additional plan as per the hospital course. Plan discussed with: Patient JAMES MORIN MD Jun 28, 2025 12:10
[2025-06-29] VITALS (8 sets, daily range): BP systolic 107–132; BP diastolic 60–78; PULSE 69–84; RESP 18–24; TEMP 97–98.4; O2SAT 91–99
--- NOTE | 2025-06-29 00:21 | DVHSR ---
APPROVED REPORT EXAM: Two-dimensional and M-mode echocardiogram with Doppler and color Doppler. Blood Pressure: 93/72 mmHg INDICATION Post STEMI RISK FACTORS Height: 5'11", Weight: 185 DIMENSIONS LVDd5.7 (3.8-5.7cm)LA (2D)5.6 (1.9-4.0cm)Aortic Root (2.0-3.7cm) LVDs4.6 (2.5-4.0cm)LA (MM) (1.9-4.0cm)Aortic Cusp Exc (1.5-2.0cm) EF (%) 39.0 (55-70%)Rt. Atrium5.2 (1.9-4.0cm)Asc. Aorta cm Mitral Valve MitralMitral Stenosis E/A ratio0.02D MVAcm2 Tricuspid Valve TR Velocity2.82m/s [id number] Other Information Quality : Technically LimitedRhythm : Technically limited study due to s/p chest compressions. Pt stated chest hurt, unable to turn pt. 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
[2025-06-29] MEDS ORDERED: HYDR-4798 PO (16:14)
[2025-06-29] MEDS ORDERED: AMIO200T33 PO (16:14)
[2025-06-29] MEDS ORDERED: BACL10TA PO (16:14)
[2025-06-29] MEDS ORDERED: ATOR-507 PO (16:14)
[2025-06-29] MEDS ORDERED: CLOP75TA28 PO (16:14)
[2025-06-29] MEDS ORDERED: LOS25T PO (16:14)
[2025-06-29] MEDS ORDERED: ASPI1TAB19 PO (16:14)
--- NOTE | 2025-06-29 16:25 | DVHDS2 ---
Discharge Summary Date of Admission Jun 27, 2025 at 02:56 Date of Discharge: Jun 29, 2025 Labs/Diagnostic Data: Laboratory Results Test 06/28/25 21:32 06/27/25 19:34 06/27/25 04:35 06/26/25 23:46 POC Glucose 274 mg/dl (70-106) Urine Color Brown (Yellow) Urine Clarity Ex.turbid (Clear) Urine pH 6.0 (5.0-9.0) Urine Specific [place] 1.018 (1.001-1.035) Urine Protein 1+ (Negative) Urine Ketones Negative (Negative) Urine Blood 3+ /uL (Negative) Urine Nitrite Negative (Negative) Urine Bilirubin Negative (Negative) Urine Urobilinogen Normal mg/dL (Negative) Urine Leukocyte Esterase 3+ /uL (Negative) Urine RBC 80 /hpf (0 - 3) Urine WBC Clumps Present /hpf (None Seen) Urine Microscopic WBC 5023 /HPF (0-3) Urine Squamous Epithelial Cells None seen /hpf (<5) Urine Bacteria None seen /hpf (None Seen) Urine Glucose Normal mg/dL (Normal) White Blood Count 7.7 10^3/uL (4.4-10.8) Red Blood Count 4.31 10^6/uL (4.5-5.90) Hemoglobin 12.4 g/dL (13.5-17.5) Hematocrit 37.1 % (41.0-53.0) Mean Corpuscular Volume 86.2 fL (80.0-100.0) Mean Corpuscular Hemoglobin 28.8 pg (28.0-32.0) Mean Corpuscular Hemoglobin Concent 33.5 g/dL (32.0-36.0) Red Cell Distribution Width 15.5 % (11.8-14.3) Platelet Count 150 10^3/uL (140-450) Mean Platelet Volume 7.7 fL (6.9-10.8) Neutrophils (%) (Auto) 84.8 % (37.0-80.0) Lymphocytes (%) (Auto) 8.7 % (10.0-50.0) Monocytes (%) (Auto) 6.4 % (0.0-12.0) Eosinophils (%) (Auto) 0.1 % (0.0-7.0) Basophils (%) (Auto) 0.0 % (0.0-2.0) Neutrophils # (Auto) 6.5 10 ^3/uL (1.6-8.6) Lymphocytes # (Auto) 0.7 10 ^3/uL (0.4-5.4) Monocytes # (Auto) 0.5 10 ^3/uL (0-1.3) Eosinophils # (Auto) 0 10 ^3/uL (0-0.8) Basophils # (Auto) 0 10 ^3/uL (0-0.2) Nucleated Red Blood Cells 0.0 % Sodium Level 139 mmol/L (136-145) Potassium Level 4.7 mmol/L (3.5-5.1) Chloride Level 107 mmol/L (98-107) Carbon Dioxide Level 22 mmol/L (20-31) Anion Gap 10 (5-15) Blood Urea Nitrogen 22 mg/dL (9-23) Creatinine 1.46 mg/dL (0.700-1.30) Glomerular Filtration Rate Calc 48 mL/min (>90) BUN/Creatinine Ratio 15.1 (10.0-20.0) Serum Glucose 222 mg/dL (74-106) Calcium Level 8.5 mg/dL (8.7-10.4) Magnesium Level 2.1 mg/dL (1.6-2.6) Total Bilirubin 0.7 mg/dL (0.2-1.0) Aspartate Amino Transferase (AST) 181 U/L (13-40) Alanine Aminotransferase (ALT) 35 U/L (7-40) Alkaline Phosphatase 75 U/L (46-116) Total Protein 6.7 g/dL (5.7-8.2) Albumin 3.8 g/dL (3.2-4.8) Lactic Acid Level 3.2 mmol/L (0.4-2.0) Troponin I High Sensitivity 6515 ng/L (</=54) Test 06/26/25 21:20 Prothrombin Time 12.1 sec (9.3-11.8) Prothrombin Time INR 1.16 (0.9-1.15) B-Type Natriuretic Peptide 46.21 pg/mL (0-100) Other Laboratory Tests 06/27/25 04:35 Brief Hx & Hospital Course: 79-year-old male presents for evaluation of cardiac arrest. Patient developed chest pain yesterday and when EMS arrived EKG showed STEMI. Subsequently the patient collapsed and was found to be in pulseless V-tach. Patient had a round of epinephrine with CPR for 90 seconds with subsequent [place]. Patient arrived to the emergency department alert and oriented. 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 06/27: Patient is seen, doing well with patient yesterday had nausea and likely was and has been sec patient is brought to [facility] taken to cath block patient was put on lidocaine. haven to L cx. sp lidocaine, now amio. doing tell. 24hr no arrythmia, will deescalate to tele. continue meds. DAPT w lipitor. will reassess for Bblock and ACEi. 06/28: Patient is still having chest pain, we will provide binder, continue pain control, continue [place], morphine if needed. Keep on tele. Likely DC tomorrow once pain is improved. 06/29: Tele unremarkable, patient doing well. Chest pain improving, binder was offered which caused more discomfort. No further recommendations from Cardiology. Stable for discharge vital signs stable. Patient will need 1 year Plavix 75 mg daily, aspirin 81 daily for life, Lipitor 40 daily,. For pain, We will give baclofen 10 mg twice daily for 7 days, azo tablets to be used as needed up to 3 times daily,. First line Tylenol, second-line [place] 10 to be use up to 4 times a day as needed. We will decrease losartan to 25 mg daily, continue Lopressor 25 mg twice daily. Continue other home medications not mentioned above (Synthroid 125 mcg daily, allopurinol 300 mg daily,), close follow up with PCP to review discharge, close follow up with primary stockroom supervisor to review need of ongoing amiodarone and review discharge. diagnosis: STEMI, V1 to V3, acute inferior posterior wall myocardial infarction s/p angiogram intervention HAVEN L cx s/p cardiac arrest, s/p ACLS ventricular tachycardia, pulseless, s/p unsync cardioversion shock, resolved hx CAD DM hypothyroid disease plan: -1 year Plavix 75 mg daily, aspirin 81 daily for life, Lipitor 40 daily,. - take amiodarone 200mg daily. -For pain, First line Tylenol, second-line [place] 10 to be use up to 4 times a day as needed. - also take baclofen 10 mg twice daily for 7 days, azo tablets to be used as needed up to 3 times daily,. -We will decrease losartan to 25 mg daily, continue Lopressor 25 mg twice daily. -Continue other home medications not mentioned above (Synthroid 125 mcg daily, allopurinol 300 mg daily,), -close follow up with PCP to review discharge, -close follow up with primary stockroom supervisor to review need of ongoing amiodarone and review discharge. Condition at Discharge: Fair Final Diagnosis/Problems List STEMI, V1 to V3, acute inferior posterior wall myocardial infarction s/p angiogram intervention HAVEN L cx s/p cardiac arrest, s/p ACLS ventricular tachycardia, pulseless, s/p unsync cardioversion shock, resolved hx CAD DM hypothyroid disease Discharge Disposition: Home Discharge Instruct/Medications Scheduled Allopurinol (Allopurinol), 1 TAB PO DAILY, (Reported) Amiodarone Hcl (Amiodarone Hcl), 1 TAB PO DAILY Aspirin (Aspirin), 81 MG PO DAILY Atorvastatin Calcium (Lipitor), 1 TAB PO DAILY Baclofen (Baclofen), 10 MG PO BID Clopidogrel Bisulfate (Plavix), 1 TAB PO DAILY Levothyroxine Sodium (Levothyroxine Sodium), 1 TAB PO DAILY, (Reported) Losartan Potassium (Losartan Potassium), 1 TAB PO DAILY, (Reported) Losartan Potassium (Losartan Potassium), 25 MG PO DAILY Methenamine Hippurate (Methenamine Hippurate), 1 TAB PO BID, (Reported) Metoprolol Tartrate (Lopressor), 1 TAB PO BID, (Reported) Scheduled PRN Hydrocodone-Acetaminophen (Hydrocodone Bitartrate/AC 10-325 mg), 1 TAB PO QIDP PRN Discharge Statement: "Patient was advised to return to the ER or call 911 if any headaches, dizziness, shortness of breath, chest pain, abdominal pain, bleeding, fevers, or worsening of medical condition. Patient was counseled about treatment plan, medications, possible side effects, patientverbalized understanding. All questions were answered to the best of my ability. This discharge took greater then 30 minutes in planning, reviewing documentation, counseling the patient, and discussing with other team members." ASSESSMENT ASSESSMENT Assessment Date of Service: Jun 29, 2025 Billing Provider: JOVANI MEJÍA MD Common Visit Codes: NOT BILLABLE JOVANI MEJÍA MD Jun 29, 2025 16:25
--- NOTE | 2025-06-29 17:16 | DVHPN2 ---
Subjective Seen at bedside, doing well Reviewed: H&P Changes from previous H/P or p: No Changes General: Per HPI Objective Vitals Vital Signs Date Time Temp Pulse Resp B/P (MAP) Pulse Ox O2 Delivery O2 Flow Rate FiO2 06/29/25 17:05 98.0 79 20 122/68 (86) 93 98.0 06/29/25 08:00 Nasal Cannula* 2 28 Intake/Output Intake and Output 06/29/25 07:00 Intake Total 1920 ml Balance 1920 ml Intake Oral 1920 ml # Voids 3 Exam GEN: Healthy appearing, well-developed, NAD. HEENT: NC/AT; MMM. CV: RRR, no m/r/g. LUNGS: CTAB, no w/r/c. ABD: Soft, NT/ND, NBS, no masses or organomegaly. EXT: skin Warm, well perfused. no rashes. No clubbing, cyanosis, or edema. NEURO: Ambulating with no limitations. No focal deficits. Medications Current Medications Medications Dose Ordered Sig/Lizz Route Start Time Stop Time Status Last Admin Dose Admin Ticagrelor 90 mg BID PO 06/27/25 10:00 06/29/25 10:00 90 MG Aspirin 81 mg DAILY PO 06/27/25 10:00 06/29/25 09:57 81 MG Metoprolol Tartrate 12.5 mg BID PO 06/27/25 10:00 06/29/25 09:58 12.5 MG Losartan Potassium 25 mg BID PO 06/27/25 10:00 06/29/25 09:56 25 MG Morphine Sulfate 2 mg Q4HPRN PRN IV 06/27/25 01:45 Pantoprazole Sodium 40 mg DAILY IV 06/27/25 10:00 06/29/25 09:55 40 MG Enoxaparin Sodium 40 mg DAILY SC 06/27/25 10:00 06/29/25 09:59 40 MG Nicotine 1 patch DAILY TD 06/27/25 10:00 Levothyroxine Sodium 125 mcg QAM@0600 PO 06/27/25 06:00 06/28/25 10:43 125 MCG Atorvastatin Calcium 40 mg HS PO 06/27/25 22:00 06/28/25 21:22 40 MG Diagnostic Test (Pha) 1 strip ACHS 06/27/25 07:00 06/29/25 16:25 1 STRIP Insulin Human Regular ACHS SC 06/27/25 07:00 06/29/25 16:43 6 UNITS Dextrose 50 ml UD PRN IV 06/27/25 03:00 Acetaminophen/ Hydrocodone Bitart 1 tab Q4HP PRN PO 06/27/25 03:00 06/28/25 17:16 1 TAB Ondansetron HCl 4 mg Q4HP PRN IV 06/27/25 03:00 06/27/25 03:17 4 MG Acetaminophen 650 mg Q6HP PRN PO 06/27/25 03:00 Nitroglycerin 0.4 mg Q5MINP PRN SL 06/27/25 03:00 Morphine Sulfate 2 mg Q30M PRN IV 06/27/25 03:00 06/27/25 03:18 2 MG Ondansetron HCl 4 mg Q4HP PRN IV 06/27/25 03:15 UNV Amiodarone HCl 200 mg DAILY PO 06/27/25 10:15 06/29/25 09:55 200 MG Baclofen 10 mg BID PO 06/28/25 14:15 06/29/25 09:57 10 MG Laboratory Results Laboratory Tests 06/27/25 04:35 Urinalysis Test 06/27/25 19:34 Urine Color Brown (Yellow) H Urine Clarity Ex.turbid (Clear) Urine pH 6.0 (5.0-9.0) Urine Specific [place] [employer] 1.018 (1.001-1.035) Urine Protein 1+ (Negative) H Urine Ketones Negative (Negative) Urine Blood 3+ /uL (Negative) H Urine Nitrite Negative (Negative) Urine Bilirubin Negative (Negative) Urine Urobilinogen Normal mg/dL (Negative) Urine Leukocyte Esterase 3+ /uL (Negative) Urine RBC 80 /hpf (0 - 3) Urine WBC Clumps Present /hpf (None Seen) Urine Microscopic WBC 5023 /HPF (0-3) H Urine Squamous Epithelial Cells None seen /hpf (<5) Urine Bacteria None seen /hpf (None Seen) Urine Glucose Normal mg/dL (Normal) Microbiology Microbiology Date/Time Source Procedure Growth Status 06/27/25 01:36 Nose MRSA Screen - Final Complete Labs and/or images reviewed: Labs reviewed by me, Image(s) reviewed by me Assessment/Plan Assessment/Plan 06/27: Patient is seen, doing well with patient yesterday had nausea and likely was and has been sec patient is brought to [facility] taken to cath block patient was put on lidocaine. haven to L cx. sp lidocaine, now amio. doing tell. 24hr no arrythmia, will deescalate to tele. continue meds. DAPT w lipitor. will reassess for Bblock and ACEi. 06/28: Patient is still having chest pain, we will provide binder, continue pain control, continue [place], morphine if needed. Keep on tele. Likely DC tomorrow once pain is improved. 06/29.: Patient was ready for discharge but then started having pain bilateral flanks also increase pink discoloration of urine with clots which he has had the past but now it is more pink. He also has history of BPH, we will start tamsulosin 0.4 mg daily, we will get CBC today because he is feeling more weak and fatigued today. Keeping patient on tele. We will also get a bladder ultrasound make sure patient is not having a UR. We will get a UA make sure patient does not have a UTI. Otherwise repeat another CBC in the a.m. if still remains stable and tele remains unconcerning patient will be discharge tomorrow morning. diagnosis: STEMI, V1 to V3, acute inferior posterior wall myocardial infarction s/p angiogram intervention HAVEN L cx s/p cardiac arrest, s/p ACLS ventricular tachycardia, pulseless, s/p unsync cardioversion shock, resolved hx CAD DM hypothyroid disease CURRENT inpatient plan: - amiodarone 200mg daily asapirn 81 lipitor 40 lovenox 40 Synthroid 125 mcg scale for diabetes pain tylenol, > norco> morphine. TENTATIVE DISCHARGE plan (anna tomorrow 06/30/25) -1 year Plavix 75 mg daily, aspirin 81 daily for life, Lipitor 40 daily,. - take amiodarone 200mg daily. -For pain, First line Tylenol, second-line [place] 10 to be use up to 4 times a day as needed. - also take baclofen 10 mg twice daily for 7 days, azo tablets to be used as needed up to 3 times daily,. -We will decrease losartan to 25 mg daily, continue Lopressor 25 mg twice daily. -Continue other home medications not mentioned above (Synthroid 125 mcg daily, allopurinol 300 mg daily,), -close follow up with PCP to review discharge, -close follow up with primary performance manager to review need of ongoing amiodarone and review discharge. tele full code Plan discussed with: Patient My Orders Orders - JOVANI MEJÍA MD Procedure Category Date Status Time Discharge DISCHARGE 06/29/25 Transmitted 16:19 Date of Service: Jun 29, 2025 Billing Provider: JOVANI MEJÍA MD Common Visit Codes: [id number] INP/OBS CARE(HIGH) JOVANI MEJÍA MD Jun 29, 2025 17:16
[2025-06-29 18:28] LABS: Hematocrit 40.2 % (41.0-53.0); Hemoglobin 13.4 g/dL (13.5-17.5); Mean Corpuscular Hemoglobin 28.7 pg (28.0-32.0); Mean Corpuscular Volume 86.3 fL (80.0-100.0); Nucleated Red Blood Cells % 0.1 %
[2025-06-29] MEDS: TAMSULOSIN HYDROCHLORIDE 0.4 MG CAP PO SCH (21:37)
--- NOTE | 2025-06-29 23:24 | DVHPN2 ---
Progress Note - Dictate Date Seen: Jun 29, 2025 Medical Necessity Reason Pt with a Central, PICC or Fol: No Subjective Patient was seen and evaluated in follow up. Per RN, the patient is noted with urinary incontinence,patient states that this is new for him. BS are in the 270's. Echocardiogram showed an EF of 39%. Telemetry reviewed. vital signs Vital Sign Date Time Temp Pulse Resp B/P (MAP) Pulse Ox O2 Delivery O2 Flow Rate FiO2 06/29/25 09:58 81 123/63 06/29/25 08:38 97.8 18 98 97.8 06/29/25 08:00 Nasal Cannula* 2 28 Total Intake and Output 06/28/25 06/28/25 06/29/25 15:00 23:00 07:00 Intake Total 1320 ml 600 ml Balance 1320 ml 600 ml medications Current Medications Medications Dose Ordered Sig/Lizz Route Start Time Stop Time Status Last Admin Dose Admin Ticagrelor 90 mg BID PO 06/27/25 10:00 06/29/25 10:00 90 MG Aspirin 81 mg DAILY PO 06/27/25 10:00 06/29/25 09:57 81 MG Metoprolol Tartrate 12.5 mg BID PO 06/27/25 10:00 06/29/25 09:58 12.5 MG Losartan Potassium 25 mg BID PO 06/27/25 10:00 06/29/25 09:56 25 MG Morphine Sulfate 2 mg Q4HPRN PRN IV 06/27/25 01:45 Pantoprazole Sodium 40 mg DAILY IV 06/27/25 10:00 06/29/25 09:55 40 MG Enoxaparin Sodium 40 mg DAILY SC 06/27/25 10:00 06/29/25 09:59 40 MG Nicotine 1 patch DAILY TD 06/27/25 10:00 Levothyroxine Sodium 125 mcg QAM@0600 PO 06/27/25 06:00 06/28/25 10:43 125 MCG Atorvastatin Calcium 40 mg HS PO 06/27/25 22:00 06/28/25 21:22 40 MG Diagnostic Test (Pha) 1 strip ACHS 06/27/25 07:00 06/28/25 21:24 1 STRIP Insulin Human Regular ACHS SC 06/27/25 07:00 06/28/25 21:45 6 UNITS Dextrose 50 ml UD PRN IV 06/27/25 03:00 Acetaminophen/ Hydrocodone Bitart 1 tab Q4HP PRN PO 06/27/25 03:00 06/28/25 17:16 1 TAB Ondansetron HCl 4 mg Q4HP PRN IV 06/27/25 03:00 06/27/25 03:17 4 MG Acetaminophen 650 mg Q6HP PRN PO 06/27/25 03:00 Nitroglycerin 0.4 mg Q5MINP PRN SL 06/27/25 03:00 Morphine Sulfate 2 mg Q30M PRN IV 06/27/25 03:00 06/27/25 03:18 2 MG Ondansetron HCl 4 mg Q4HP PRN IV 06/27/25 03:15 UNV Amiodarone HCl 200 mg DAILY PO 06/27/25 10:15 06/29/25 09:55 200 MG Baclofen 10 mg BID PO 06/28/25 14:15 06/29/25 09:57 10 MG objective GENERAL: Alert and oriented x 3. No acute distress. EYES: PERRL, EOMI. Anicteric. HENT: Moist mucous membranes. LUNGS: Clear to auscultation bilaterally. CARDIOVASCULAR: Regular rate and rhythm. ABDOMEN: Soft, nontender and nondistended. EXTREMITIES: No edema. NEUROLOGIC: No focal neurological deficits. SKIN: Warm, dry. laboratory and microbiology Laboratory Tests 06/27/25 04:35 Test 06/27/25 04:35 Range/Units Serum Glucose 222 H 74-106 mg/dL Problem List STEMI. Status post cardiac arrest. Ventricular tachycardia, pulseless, resolved. History of CAD. DM. Hypothyroid disease. Assessment/Plan Continued all current supportive medical care. Tylenol for pain management. Amiodarone. Aspirin, Metoprolol, Brilinta. DVT and GI prophylactics. Losartan. Nitro SL. Additional plan as per the hospital course. Plan discussed with: Patient JAMES MORIN MD Jun 29, 2025 12:46
[2025-06-30] VITALS (8 sets, daily range): BP systolic 103–124; BP diastolic 56–68; PULSE 60–74; RESP 18–20; TEMP 97.3–98.7; O2SAT 93–98
[2025-06-30 02:11] LABS: Urine Protein, UAD 1+ (Negative); Urine WBC Clumps PRESENT /hpf (None Seen)
[2025-06-30 10:59] LABS: Hematocrit 38.1 % (41.0-53.0); Hemoglobin 12.8 g/dL (13.5-17.5); Mean Corpuscular Hemoglobin 28.7 pg (28.0-32.0); Mean Corpuscular Volume 85.6 fL (80.0-100.0); Nucleated Red Blood Cells % 0.1 %
--- NOTE | 2025-06-30 15:06 | DVHPN2 ---
Subjective c/o pain rt rib/no shortness of breath Reviewed: H&P Changes from previous H/P or p: No Changes General: Per HPI Objective Vitals Vital Signs Date Time Temp Pulse Resp B/P (MAP) Pulse Ox O2 Delivery O2 Flow Rate FiO2 06/30/25 13:00 97.7 66 18 122/65 (84) 98 97.7 06/30/25 08:00 Nasal Cannula* 2 28 Intake/Output Intake and Output 06/30/25 07:00 Intake Total 980 ml Balance 980 ml Intake Oral 980 ml # Voids 6 General Appearance: Alert, Oriented X3, Cooperative, No acute distress Cardiovascular: Regular rate, Normal S1, Normal S2 Abdomen: Normal bowel sounds, Soft, No tenderness, No hepatospenomegaly Musculoskeletal: Normal sensory function, Normal motor function Neuro: Normal gait, Normal speech, Strength at 5/5 X4 ext, Normal tone, S ensation intact, Cranial nerves 3-12 NL Psych/Mental Status: Mental status NL, Mood NL Medications Current Medications Medications Dose Ordered Sig/Lizz Route Start Time Stop Time Status Last Admin Dose Admin Ticagrelor 90 mg BID PO 06/27/25 10:00 06/30/25 10:00 90 MG Aspirin 81 mg DAILY PO 06/27/25 10:00 06/30/25 10:00 81 MG Metoprolol Tartrate 12.5 mg BID PO 06/27/25 10:00 06/30/25 10:00 12.5 MG Losartan Potassium 25 mg BID PO 06/27/25 10:00 06/30/25 10:00 25 MG Enoxaparin Sodium 40 mg DAILY SC 06/27/25 10:00 06/30/25 10:00 40 MG Nicotine 1 patch DAILY TD 06/27/25 10:00 Levothyroxine Sodium 125 mcg QAM@0600 PO 06/27/25 06:00 06/30/25 06:04 125 MCG Atorvastatin Calcium 40 mg HS PO 06/27/25 22:00 06/29/25 21:33 40 MG Diagnostic Test (Pha) 1 strip ACHS 06/27/25 07:00 06/30/25 06:04 1 STRIP Insulin Human Regular ACHS SC 06/27/25 07:00 06/29/25 21:29 4 UNITS Dextrose 50 ml UD PRN IV 06/27/25 03:00 Acetaminophen 650 mg Q6HP PRN PO 06/27/25 03:00 Ondansetron HCl 4 mg Q4HP PRN IV 06/27/25 03:15 UNV Amiodarone HCl 200 mg DAILY PO 06/27/25 10:15 06/30/25 10:00 200 MG Tamsulosin HCl 0.4 mg QPM PO 06/29/25 18:00 06/29/25 21:37 0.4 MG Laboratory Results Laboratory Tests 06/27/25 04:35 06/30/25 10:30 Urinalysis Test 06/30/25 01:20 Urine Color Dark yellow (Yellow) Urine Clarity Ex.turbid (Clear) Urine pH 5.5 (5.0-9.0) Urine Specific [place] 1.011 (1.001-1.035) Urine Protein 1+ (Negative) H Urine Ketones Negative (Negative) Urine Blood 3+ /uL (Negative) H Urine Nitrite Negative (Negative) Urine Bilirubin Negative (Negative) Urine Urobilinogen Normal mg/dL (Negative) Urine Leukocyte Esterase 3+ /uL (Negative) Urine RBC 126 /hpf (0 - 3) Urine WBC Clumps Present /hpf (None Seen) Urine Microscopic WBC 3184 /HPF (0-3) H Urine Squamous Epithelial Cells None seen /hpf (<5) Urine Bacteria Few /hpf (None Seen) H Urine Glucose Normal mg/dL (Normal) Microbiology Microbiology Date/Time Source Procedure Growth Status 06/27/25 01:36 Nose MRSA Screen - Final Complete Labs and/or images reviewed: Labs reviewed by me, Image(s) reviewed by me Assessment/Plan Assessment/Plan s/p cardiac arrest situational anxiety s/p cute mi- s/p stent circumflex cad tobacco abuse rib contusion-xray/pain control bph with episodic hematuria- f[facility] - old lumbar compression fracture Plan discussed with: Patient My Orders Orders - KIMBERLY HILLIARD MD Procedure Category Date Status Time R Rib Xray XY 06/30/25 Taken 14:14 Date of Service: Jun 30, 2025 Billing Provider: KIMBERLY HILLIARD MD Common Visit Codes: [id number] SAME DATE (MOD) KIMBERLY HILLIARD MD Jun 30, 2025 15:06
--- NOTE | 2025-06-30 15:07 | DVH ---
CHEST RADIOGRAPH Indication: pain/h/o recent cpr Technique: Single frontal view of the chest was obtained Comparison: XY CHEST PORTABLE on DOS: 06/26/25, CT CHEST WITHOUT CONTRAST on DOS: 11/15/24 FINDINGS: Lines and Tubes: None Lungs: No focal consolidation. Large hiatal hernia. Unchanged from 06/26/2025. Pleura: No effusion. No pneumothorax. Cardiomediastinal contours: Unremarkable Bones: No acute osseous abnormality. IMPRESSION: 1. No acute cardiopulmonary disease.
[2025-06-30] MEDS: ACETAMINOPHEN 325 MG TAB PO ONE (17:42)
[2025-06-30] MEDS: LIDOCAINE 5% TOPICAL PATCH TOP ONE (17:42)
--- NOTE | 2025-06-30 20:26 | DVHPN2 ---
Progress Note - Dictate Date Seen: Jun 30, 2025 Medical Necessity Reason Pt with a Central, PICC or Fol: No Subjective Patient was seen and evaluated in follow up. Patient is on 2 LPM NC. Patient is complaining of rib pain. Left rib x-ray is unremarkable. BS have improved. Telemetry reviewed. vital signs Vital Sign Date Time Temp Pulse Resp B/P (MAP) Pulse Ox O2 Delivery O2 Flow Rate FiO2 06/30/25 10:00 124/61 06/30/25 10:00 62 06/30/25 09:00 98.7 18 95 98.7 06/29/25 20:00 Nasal Cannula* 2 28 Total Intake and Output 06/29/25 06/29/25 06/30/25 15:00 23:00 07:00 Intake Total 500 ml 480 ml Balance 500 ml 480 ml medications Current Medications Medications Dose Ordered Sig/Lizz Route Start Time Stop Time Status Last Admin Dose Admin Ticagrelor 90 mg BID PO 06/27/25 10:00 06/30/25 10:00 90 MG Aspirin 81 mg DAILY PO 06/27/25 10:00 06/30/25 10:00 81 MG Metoprolol Tartrate 12.5 mg BID PO 06/27/25 10:00 06/30/25 10:00 12.5 MG Losartan Potassium 25 mg BID PO 06/27/25 10:00 06/30/25 10:00 25 MG Morphine Sulfate 2 mg Q4HPRN PRN IV 06/27/25 01:45 Pantoprazole Sodium 40 mg DAILY IV 06/27/25 10:00 06/30/25 10:00 40 MG Enoxaparin Sodium 40 mg DAILY SC 06/27/25 10:00 06/30/25 10:00 40 MG Nicotine 1 patch DAILY TD 06/27/25 10:00 Levothyroxine Sodium 125 mcg QAM@0600 PO 06/27/25 06:00 06/30/25 06:04 125 MCG Atorvastatin Calcium 40 mg HS PO 06/27/25 22:00 06/29/25 21:33 40 MG Diagnostic Test (Pha) 1 strip ACHS 06/27/25 07:00 06/30/25 06:04 1 STRIP Insulin Human Regular ACHS SC 06/27/25 07:00 06/29/25 21:29 4 UNITS Dextrose 50 ml UD PRN IV 06/27/25 03:00 Acetaminophen/ Hydrocodone Bitart 1 tab Q4HP PRN PO 06/27/25 03:00 06/29/25 21:33 1 TAB Ondansetron HCl 4 mg Q4HP PRN IV 06/27/25 03:00 06/27/25 03:17 4 MG Acetaminophen 650 mg Q6HP PRN PO 06/27/25 03:00 Nitroglycerin 0.4 mg Q5MINP PRN SL 06/27/25 03:00 Morphine Sulfate 2 mg Q30M PRN IV 06/27/25 03:00 06/27/25 03:18 2 MG Ondansetron HCl 4 mg Q4HP PRN IV 06/27/25 03:15 UNV Amiodarone HCl 200 mg DAILY PO 06/27/25 10:15 06/30/25 10:00 200 MG Baclofen 10 mg BID PO 06/28/25 14:15 06/30/25 10:00 10 MG Tamsulosin HCl 0.4 mg QPM PO 06/29/25 18:00 06/29/25 21:37 0.4 MG objective GENERAL: Alert and oriented x 3. No acute distress. EYES: PERRL, EOMI. Anicteric. HENT: Moist mucous membranes. LUNGS: Clear to auscultation bilaterally. CARDIOVASCULAR: Regular rate and rhythm. ABDOMEN: Soft, nontender and nondistended. EXTREMITIES: No edema. NEUROLOGIC: No focal neurological deficits. SKIN: Warm, dry. laboratory and microbiology Laboratory Tests 06/30/25 10:30 06/27/25 04:35 Test 06/27/25 04:35 Range/Units Serum Glucose 222 H 74-106 mg/dL Problem List STEMI. Status post cardiac arrest. Ventricular tachycardia, pulseless, resolved. History of CAD. DM. Hypothyroid disease. Assessment/Plan Continued all current supportive medical care. Tylenol for pain management. Amiodarone. Aspirin, Metoprolol, Brilinta. DVT and GI prophylactics. Losartan. Nitro SL. Additional plan as per the hospital course. Plan discussed with: Patient JAMES MORIN MD Jun 30, 2025 12:18
[2025-07-01] VITALS (8 sets, daily range): BP systolic 117–137; BP diastolic 59–80; PULSE 54–95; RESP 16–19; TEMP 97.6–98.3; O2SAT 94–96
[2025-07-01] MEDS: LORazepam 2MG/ML-1ML VIAL IM ONE (05:51)
--- NOTE | 2025-07-01 09:38 | ECG ---
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
[2025-07-01] MEDS: MORPHINE SULFATE INJ 2 MG/ml SYRG IV ONE (09:55)
--- NOTE | 2025-07-01 17:21 | DVHPN2 ---
Subjective c/o pain rt rib/no shortness of breath today c/o burning when he urinates Reviewed: H&P Changes from previous H/P or p: No Changes General: Per HPI Objective Vitals Vital Signs Date Time Temp Pulse Resp B/P (MAP) Pulse Ox O2 Delivery O2 Flow Rate FiO2 07/01/25 13:00 98.1 95 17 125/79 (94) 94 98.1 07/01/25 08:00 Nasal Cannula* 1 24 Intake/Output Intake and Output 07/01/25 07:00 Intake Total 1200 ml Balance 1200 ml Intake Oral 1200 ml # Voids 7 # Bowel Movements 1 General Appearance: Alert, Oriented X3, Cooperative, No acute distress Cardiovascular: Regular rate, Normal S1, Normal S2 Abdomen: Normal bowel sounds, Soft, No tenderness, No hepatospenomegaly Musculoskeletal: Normal sensory function, Normal motor function Neuro: Normal gait, Normal speech, Strength at 5/5 X4 ext, Normal tone, S ensation intact, Cranial nerves 3-12 NL Psych/Mental Status: Mental status NL, Mood NL Medications Current Medications Medications Dose Ordered Sig/Lizz Route Start Time Stop Time Status Last Admin Dose Admin Ticagrelor 90 mg BID PO 06/27/25 10:00 07/01/25 09:51 90 MG Aspirin 81 mg DAILY PO 06/27/25 10:00 07/01/25 09:51 81 MG Metoprolol Tartrate 12.5 mg BID PO 06/27/25 10:00 07/01/25 09:50 12.5 MG Losartan Potassium 25 mg BID PO 06/27/25 10:00 07/01/25 09:49 25 MG Enoxaparin Sodium 40 mg DAILY SC 06/27/25 10:00 07/01/25 09:50 40 MG Nicotine 1 patch DAILY TD 06/27/25 10:00 07/01/25 09:51 1 PATCH Levothyroxine Sodium 125 mcg QAM@0600 PO 06/27/25 06:00 07/01/25 06:37 125 MCG Atorvastatin Calcium 40 mg HS PO 06/27/25 22:00 06/30/25 21:53 40 MG Diagnostic Test (Pha) 1 strip ACHS 06/27/25 07:00 07/01/25 16:35 1 STRIP Insulin Human Regular ACHS SC 06/27/25 07:00 07/01/25 11:30 3 UNITS Dextrose 50 ml UD PRN IV 06/27/25 03:00 Acetaminophen 650 mg Q6HP PRN PO 06/27/25 03:00 Ondansetron HCl 4 mg Q4HP PRN IV 06/27/25 03:15 UNV Amiodarone HCl 200 mg DAILY PO 06/27/25 10:15 07/01/25 09:49 200 MG Tamsulosin HCl 0.4 mg QPM PO 06/29/25 18:00 06/30/25 17:41 0.4 MG Ceftriaxone Sodium 50 ml @ 100 mls/hr DAILY@09 IV 07/02/25 09:00 Laboratory Results Laboratory Tests 06/27/25 04:35 06/30/25 10:30 Urinalysis Test 06/30/25 01:20 Urine Color Dark yellow (Yellow) Urine Clarity Ex.turbid (Clear) Urine pH 5.5 (5.0-9.0) Urine Specific [place] 1.011 (1.001-1.035) Urine Protein 1+ (Negative) H Urine Ketones Negative (Negative) Urine Blood 3+ /uL (Negative) H Urine Nitrite Negative (Negative) Urine Bilirubin Negative (Negative) Urine Urobilinogen Normal mg/dL (Negative) Urine Leukocyte Esterase 3+ /uL (Negative) Urine RBC 126 /hpf (0 - 3) Urine WBC Clumps Present /hpf (None Seen) Urine Microscopic WBC 3184 /HPF (0-3) H Urine Squamous Epithelial Cells None seen /hpf (<5) Urine Bacteria Few /hpf (None Seen) H Urine Glucose Normal mg/dL (Normal) Microbiology Microbiology Date/Time Source Procedure Growth Status 06/27/25 01:36 Nose MRSA Screen - Final Complete Labs and/or images reviewed: Labs reviewed by me Assessment/Plan Assessment/Plan s/p cardiac arrest situational anxiety s/p cute mi- s/p stent circumflex cad tobacco abuse rib contusion-xray/pain control bph with episodic hematuria- f/by [facility] - old lumbar compression fracture Plan discussed with: Patient, Other My Orders Orders - KIMBERLY HILLIARD MD Procedure Category Date Status Time Ceftriaxone 1gm/50ml PHA 07/02/25 In Process (Rocephin) 09:00 Urine Bacterial [place]IL[place] 07/01/25 In Process Culture 11:56 Date of Service: Jul 01, 2025 Billing Provider: KIMBERLY HILLIARD MD Common Visit Codes: [id number] INP/OBS CARE(MOD) KIMBERLY HILLIARD MD Jul 01, 2025 17:21
[2025-07-01] MEDS: ACETAMINOPHEN 325 MG TAB PO PRN (21:18)
--- NOTE | 2025-07-01 23:39 | DVHPN2 ---
Progress Note - Dictate Date Seen: Jul 01, 2025 Medical Necessity Reason Pt with a Central, PICC or Fol: No Subjective Patient was seen and evaluated in follow up. Early this am, per RN,the patient became increasingly agitated and shouting profanity at nursing staff. Patient has since calmed down.Patient complains of his chest feeling cold. BS are in the 220's. Telemetry reviewed. vital signs Vital Sign Date Time Temp Pulse Resp B/P (MAP) Pulse Ox O2 Delivery O2 Flow Rate FiO2 07/01/25 11:14 68 118/64 07/01/25 10:25 18 07/01/25 09:00 98.3 95 98.3 06/30/25 20:00 Room Air* 0 21 Total Intake and Output 06/30/25 06/30/25 07/01/25 14:59 22:59 06:59 Intake Total 400 ml 800 ml Balance 400 ml 800 ml medications Current Medications Medications Dose Ordered Sig/Lizz Route Start Time Stop Time Status Last Admin Dose Admin Ticagrelor 90 mg BID PO 06/27/25 10:00 07/01/25 09:51 90 MG Aspirin 81 mg DAILY PO 06/27/25 10:00 07/01/25 09:51 81 MG Metoprolol Tartrate 12.5 mg BID PO 06/27/25 10:00 07/01/25 09:50 12.5 MG Losartan Potassium 25 mg BID PO 06/27/25 10:00 07/01/25 09:49 25 MG Enoxaparin Sodium 40 mg DAILY SC 06/27/25 10:00 07/01/25 09:50 40 MG Nicotine 1 patch DAILY TD 06/27/25 10:00 07/01/25 09:51 1 PATCH Levothyroxine Sodium 125 mcg QAM@0600 PO 06/27/25 06:00 07/01/25 06:37 125 MCG Atorvastatin Calcium 40 mg HS PO 06/27/25 22:00 06/30/25 21:53 40 MG Diagnostic Test (Pha) 1 strip ACHS 06/27/25 07:00 07/01/25 11:30 1 STRIP Insulin Human Regular ACHS SC 06/27/25 07:00 07/01/25 11:30 3 UNITS Dextrose 50 ml UD PRN IV 06/27/25 03:00 Acetaminophen 650 mg Q6HP PRN PO 06/27/25 03:00 Ondansetron HCl 4 mg Q4HP PRN IV 06/27/25 03:15 UNV Amiodarone HCl 200 mg DAILY PO 06/27/25 10:15 07/01/25 09:49 200 MG Tamsulosin HCl 0.4 mg QPM PO 06/29/25 18:00 06/30/25 17:41 0.4 MG Ceftriaxone Sodium 50 ml @ 100 mls/hr DAILY@ IV 07/02/25 09:00 objective GENERAL: Alert and oriented x 3. No acute distress. EYES: PERRL, EOMI. Anicteric. HENT: Moist mucous membranes. LUNGS: Clear to auscultation bilaterally. CARDIOVASCULAR: Regular rate and rhythm. ABDOMEN: Soft, nontender and nondistended. EXTREMITIES: No edema. NEUROLOGIC: No focal neurological deficits. SKIN: Warm, dry. laboratory and microbiology Laboratory Tests 06/30/25 10:30 06/27/25 04:35 Test 06/27/25 04:35 Range/Units Serum Glucose 222 H 74-106 mg/dL Problem List STEMI. Status post cardiac arrest. Ventricular tachycardia, pulseless, resolved. History of CAD. DM. Hypothyroid disease. Assessment/Plan Continued all current supportive medical care. Tylenol for pain management. Amiodarone. Aspirin, Metoprolol, Brilinta. DVT and GI prophylactics. Losartan. Nitro SL. Additional plan as per the hospital course. Plan discussed with: Patient JAMES MORIN MD Jul 01, 2025 14:13
[2025-07-02 01:00] VITALS: BP 114/67; PULSE 83; RESP 17; TEMP 98; O2SAT 95
[2025-07-02] MEDS ORDERED: NITROGLYCERIN 0.4 MG SL TAB SL PRN (02:15)
[2025-07-02] MEDS ORDERED: MORPHINE SULFATE INJ 2 MG/ml SYRG IV PRN (02:15)
--- NOTE | 2025-07-02 02:30 | ECG ---
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
[2025-07-02 05:00] VITALS: BP 108/58; PULSE 68; RESP 17; TEMP 98.7; O2SAT 98
[2025-07-02 07:06] LABS: Hematocrit 40.6 % (41.0-53.0); Hemoglobin 13.7 g/dL (13.5-17.5); Mean Corpuscular Hemoglobin 29.2 pg (28.0-32.0); Mean Corpuscular Volume 86.5 fL (80.0-100.0); Nucleated Red Blood Cells % 0.1 %
[2025-07-02 07:20] LABS: Potassium 4.0 mmol/L (3.5-5.1); Sodium 143 mmol/L (136-145)
[2025-07-02 07:21] LABS: Anion Gap 11 (5-15); Carbon Dioxide 25 mmol/L (20-31)
[2025-07-02 07:22] LABS: Calcium 9.3 mg/dL (8.7-10.4)
[2025-07-02 07:27] LABS: BUN/Creatinine Ratio 19.0 (10.0-20.0)
[2025-07-02 07:38] LABS: Blood Urea Nitrogen 29 mg/dL (9-23); Chloride 107 mmol/L (98-107); Glucose 153 mg/dL (74-106)
[2025-07-02 08:00] VITALS: PULSE 68; RESP 18; O2SAT 99
[2025-07-02 09:00] VITALS: BP 143/78; PULSE 68; RESP 17; TEMP 97.7; O2SAT 98
[2025-07-02] MEDS ORDERED: HYDR-4902 PO (12:27)
--- NOTE | 2025-07-02 12:30 | DVHDS2 ---
Discharge Summary Date of Admission Jun 27, 2025 at 02:56 Date of Discharge: Jun 29, 2025 Labs/Diagnostic Data: Laboratory Results Test 07/02/25 06:27 06/30/25 21:34 06/30/25 01:20 06/27/25 04:35 White Blood Count 4.7 10^3/uL (4.4-10.8) Red Blood Count 4.69 10^6/uL (4.5-5.90) Hemoglobin 13.7 g/dL (13.5-17.5) Hematocrit 40.6 % (41.0-53.0) Mean Corpuscular Volume 86.5 fL (80.0-100.0) Mean Corpuscular Hemoglobin 29.2 pg (28.0-32.0) Mean Corpuscular Hemoglobin Concent 33.8 g/dL (32.0-36.0) Red Cell Distribution Width 15.1 % (11.8-14.3) Platelet Count 187 10^3/uL (140-450) Mean Platelet Volume 7.7 fL (6.9-10.8) Neutrophils (%) (Auto) 61.8 % (37.0-80.0) Lymphocytes (%) (Auto) 22.0 % (10.0-50.0) Monocytes (%) (Auto) 12.0 % (0.0-12.0) Eosinophils (%) (Auto) 3.5 % (0.0-7.0) Basophils (%) (Auto) 0.7 % (0.0-2.0) Neutrophils # (Auto) 2.9 10 ^3/uL (1.6-8.6) Lymphocytes # (Auto) 1.0 10 ^3/uL (0.4-5.4) Monocytes # (Auto) 0.6 10 ^3/uL (0-1.3) Eosinophils # (Auto) 0.2 10 ^3/uL (0-0.8) Basophils # (Auto) 0 10 ^3/uL (0-0.2) Nucleated Red Blood Cells 0.1 % Sodium Level 143 mmol/L (136-145) Potassium Level 4.0 mmol/L (3.5-5.1) Chloride Level 107 mmol/L (98-107) Carbon Dioxide Level 25 mmol/L (20-31) Anion Gap 11 (5-15) Blood Urea Nitrogen 29 mg/dL (9-23) Creatinine 1.53 mg/dL (0.700-1.30) Glomerular Filtration Rate Calc 46 mL/min (>90) BUN/Creatinine Ratio 19.0 (10.0-20.0) Serum Glucose 153 mg/dL (74-106) Calcium Level 9.3 mg/dL (8.7-10.4) Troponin I High Sensitivity 2525 ng/L (</=54) POC Glucose 221 mg/dl (70-106) Urine Color Dark yellow (Yellow) Urine Clarity Ex.turbid (Clear) Urine pH 5.5 (5.0-9.0) Urine Specific [place] 1.011 (1.001-1.035) Urine Protein 1+ (Negative) Urine Ketones Negative (Negative) Urine Blood 3+ /uL (Negative) Urine Nitrite Negative (Negative) Urine Bilirubin Negative (Negative) Urine Urobilinogen Normal mg/dL (Negative) Urine Leukocyte Esterase 3+ /uL (Negative) Urine RBC 126 /hpf (0 - 3) Urine WBC Clumps Present /hpf (None Seen) Urine Microscopic WBC 3184 /HPF (0-3) Urine Squamous Epithelial Cells None seen /hpf (<5) Urine Bacteria Few /hpf (None Seen) Urine Glucose Normal mg/dL (Normal) Magnesium Level 2.1 mg/dL (1.6-2.6) Total Bilirubin 0.7 mg/dL (0.2-1.0) Aspartate Amino Transferase (AST) 181 U/L (13-40) Alanine Aminotransferase (ALT) 35 U/L (7-40) Alkaline Phosphatase 75 U/L (46-116) Total Protein 6.7 g/dL (5.7-8.2) Albumin 3.8 g/dL (3.2-4.8) Test 06/26/25 23:46 06/26/25 21:20 Lactic Acid Level 3.2 mmol/L (0.4-2.0) Prothrombin Time 12.1 sec (9.3-11.8) Prothrombin Time INR 1.16 (0.9-1.15) B-Type Natriuretic Peptide 46.21 pg/mL (0-100) Other Laboratory Tests 07/02/25 06:27 Brief Hx & Hospital Course: 79-year-old male presents for evaluation of cardiac arrest. Patient developed chest pain yesterday and when EMS arrived EKG showed STEMI. Subsequently the patient collapsed and was found to be in pulseless V-tach. Patient had a round of epinephrine with CPR for 90 seconds with subsequent [place]. Patient arrived to the emergency department alert and oriented. 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 06/27: Patient is seen, doing well with patient yesterday had nausea and likely was and has been sec patient is brought to [facility] taken to cath block patient was put on lidocaine. haven to L cx. sp lidocaine, now amio. doing tell. 24hr no arrythmia, will deescalate to tele. continue meds. DAPT w lipitor. will reassess for Bblock and ACEi. 06/28: Patient is still having chest pain, we will provide binder, continue pain control, continue [place], morphine if needed. Keep on tele. Likely DC tomorrow once pain is improved. 06/29: Tele unremarkable, patient doing well. Chest pain improving, binder was offered which caused more discomfort. No further recommendations from Cardiology. Stable for discharge vital signs stable. Patient will need 1 year Plavix 75 mg daily, aspirin 81 daily for life, Lipitor 40 daily,. For pain, We will give baclofen 10 mg twice daily for 7 days, azo tablets to be used as needed up to 3 times daily,. First line Tylenol, second-line [place] 10 to be use up to 4 times a day as needed. We will decrease losartan to 25 mg daily, continue Lopressor 25 mg twice daily. Continue other home medications not mentioned above (Synthroid 125 mcg daily, allopurinol 300 mg daily,), close follow up with PCP to review discharge, close follow up with primary manager float to review need of ongoing amiodarone and review discharge. diagnosis: STEMI, V1 to V3, acute inferior posterior wall myocardial infarction s/p angiogram intervention HAVEN L cx s/p cardiac arrest, s/p ACLS ventricular tachycardia, pulseless, s/p unsync cardioversion shock, resolved hx CAD DM hypothyroid disease plan: -1 year Plavix 75 mg daily, aspirin 81 daily for life, Lipitor 40 daily,. - take amiodarone 200mg daily. Take Keflex 500 mg twice daily for 5 days, -For pain, First line Tylenol, second-line [place] 10 to be use up to 4 times a day as needed. - also take baclofen 10 mg twice daily for 7 days, azo tablets to be used as needed up to 3 times daily,. -We will decrease losartan to 25 mg daily, continue Lopressor 25 mg twice daily. -Continue other home medications not mentioned above (Synthroid 125 mcg daily, allopurinol 300 mg daily,), -close follow up with PCP to review discharge, -close follow up with primary manager float to review need of ongoing amiodarone and review discharge. Condition at Discharge: Fair Final Diagnosis/Problems List STEMI, V1 to V3, acute inferior posterior wall myocardial infarction s/p angiogram intervention HAVEN L cx s/p cardiac arrest, s/p ACLS ventricular tachycardia, pulseless, s/p unsync cardioversion shock, resolved hx CAD DM hypothyroid disease Discharge Disposition: Home Discharge Instruct/Medications Diet: Cardiac 2g Na,low cholest Activity: No Restrictions, As Tolerated Follow Up/Referral: See below Medications: See below Scheduled Allopurinol (Allopurinol), 1 TAB PO DAILY, (Reported) Amiodarone Hcl (Amiodarone Hcl), 1 TAB PO DAILY Amoxicillin Trihydrate (Amoxicillin), 250 MG PO Q8HR, (Reported) Aspirin (Aspirin), 81 MG PO DAILY Atorvastatin Calcium (Lipitor), 1 TAB PO DAILY Baclofen (Baclofen), 10 MG PO BID Cephalexin (Keflex Capsule), 2 CAP PO BID Clopidogrel Bisulfate (Plavix), 1 TAB PO DAILY Levothyroxine Sodium (Levothyroxine Sodium), 1 TAB PO DAILY, (Reported) Losartan Potassium (Losartan Potassium), 25 MG PO DAILY Methenamine Hippurate (Methenamine Hippurate), 1 TAB PO BID, (Reported) Metoprolol Tartrate (Lopressor), 1 TAB PO BID, (Reported) Scheduled PRN Hydrocodone-Acetaminophen (Hydrocodone Bitartrate/AC 10-325 mg), 1 TAB PO QIDP PRN Discontinued Medications Losartan Potassium (Losartan Potassium), 1 TAB PO DAILY, (Reported) Discharge Statement: "Patient was advised to return to the ER or call 911 if any headaches, dizziness, shortness of breath, chest pain, abdominal pain, bleeding, fevers, or worsening of medical condition. Patient was counseled about treatment plan, medications, possible side effects, patientverbalized understanding. All questions were answered to the best of my ability. This discharge took greater then 30 minutes in planning, reviewing documentation, counseling the patient, and discussing with other team members." Date of Service: Jul 02, 2025 Billing Provider: JOVANI MEJÍA MD Common Visit Codes: [id number] DISCH DAY >30min JOVANI MEJÍA MD Jul 02, 2025 12:29
--- NOTE | 2025-07-02 12:39 | ECG ---
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
[2025-07-02 13:00] VITALS: BP 129/77; PULSE 72; RESP 17; TEMP 97.9; O2SAT 96
[2025-07-02] MEDS ORDERED: AMOX250C3 PO (16:18)
[2025-07-02 16:20] VITALS: BP 138/72; PULSE 78; RESP 18; TEMP 36.6; O2SAT 98
[2025-07-02] MEDS ORDERED: CEPH250C PO (16:56)
[2025-07-02] MEDS ORDERED: AMOXICILLIN TRIHYDRATE 250 MG CAP PO SCH (22:00)
--- NOTE | 2025-07-02 22:12 | DVHPN2 ---
Progress Note - Dictate Date Seen: Jul 02, 2025 Medical Necessity Reason Pt with a Central, PICC or Fol: No Subjective Patient was seen and evaluated in follow up. Patient has no new complaints at this time. Patient denies any cardiac symptoms. Patient is cardiac stable for discharge. Telemetry reviewed. vital signs Vital Sign Date Time Temp Pulse Resp B/P (MAP) Pulse Ox O2 Delivery O2 Flow Rate FiO2 07/02/25 16:20 36.6 78 18 98 07/02/25 13:00 129/77 (94) 07/02/25 08:00 Nasal Cannula* 1 24 Total Intake and Output 07/01/25 07/01/25 07/02/25 15:00 23:00 07:00 Intake Total 50 ml 400 ml 800 ml Output Total 900 ml Balance 50 ml 400 ml -100 ml medications Current Medications Medications Dose Ordered Sig/Lizz Route Start Time Stop Time Status Last Admin Dose Admin Ondansetron HCl 4 mg Q4HP PRN IV 06/27/25 03:15 UNV objective GENERAL: Alert and oriented x 3. No acute distress. EYES: PERRL, EOMI. Anicteric. HENT: Moist mucous membranes. LUNGS: Clear to auscultation bilaterally. CARDIOVASCULAR: Regular rate and rhythm. ABDOMEN: Soft, nontender and nondistended. EXTREMITIES: No edema. NEUROLOGIC: No focal neurological deficits. SKIN: Warm, dry. laboratory and microbiology Laboratory Tests 07/02/25 06:27 Test 07/02/25 06:27 Range/Units Serum Glucose 153 H 74-106 mg/dL Problem List STEMI. Status post cardiac arrest. Ventricular tachycardia, pulseless, resolved. History of CAD. DM. Hypothyroid disease. Assessment/Plan Continued all current supportive medical care. Tylenol for pain management. Amiodarone. Aspirin, Metoprolol, Brilinta. DVT and GI prophylactics. Losartan. Nitro SL. Additional plan as per the hospital course. Dietary Evaluation Review Recommendations by RD: Dietary education by RD Comments: 1) Add 60g CCHO restriction to cardiac diet 2) Encourage optimal PO intake 3) Collect HbA1c 4) Refer to outpatient RD/CDCES for diabetes education 5) Follow-up with cardiology and pulmonology 6) Continue to monitor I&O, labs, and skin integrity Expected Outcomes/Goals: 1) appetite and labs to improve 2) f/u in 3-5 days Plan discussed with: Patient JAMES MORIN MD Jul 02, 2025 22:12
== END 2025-07-02 16:55 | disposition home or self-care (01) | DRG 321 ==
LOC: EDBD 21:16 → ER 21:16 → DOU IN ICU 06-27 02:56 → ICU CENTRL 06-27 02:57 → TELE-WESTW 06-27 17:04
PROVIDERS: ADMIT Student in an Organized Health Care Education/Training Program; ATTEND Student in an Organized Health Care Education/Training Program
PROC: 027034Z Dilation of Coronary Artery, One Artery with Drug-eluting Intraluminal Device, Percutaneous Approach (ICD-10-PCS; principal; 2025-06-26)
PROC: 02C03ZZ Extirpation of Matter from Coronary Artery, One Artery, Percutaneous Approach (ICD-10-PCS; 2025-06-26)
PROC: 04HY32Z Insertion of Monitoring Device into Lower Artery, Percutaneous Approach (ICD-10-PCS; 2025-06-26)
PROC: B41FYZZ Fluoroscopy of Right Lower Extremity Arteries using Other Contrast (ICD-10-PCS; 2025-06-26)
PROC: B241ZZ3 Ultrasonography of Multiple Coronary Arteries, Intravascular (ICD-10-PCS; 2025-06-26)
PROC: 3E073PZ Introduction of Platelet Inhibitor into Coronary Artery, Percutaneous Approach (ICD-10-PCS; 2025-06-26)
PROC: 4A023N7 Measurement of Cardiac Sampling and Pressure, Left Heart, Percutaneous Approach (ICD-10-PCS; 2025-06-26)
PROC: B211YZZ Fluoroscopy of Multiple Coronary Arteries using Other Contrast (ICD-10-PCS; 2025-06-26)
PROC: B215YZZ Fluoroscopy of Left Heart using Other Contrast (ICD-10-PCS; 2025-06-26)
DX: I21.19 ST elevation (STEMI) myocardial infarction involving other coronary artery of inferior wall (principal); I46.9 Cardiac arrest, cause unspecified; I47.20 Ventricular tachycardia, unspecified; E11.9 Type 2 diabetes mellitus without complications; I95.9 Hypotension, unspecified; E03.9 Hypothyroidism, unspecified; S20.211A Contusion of right front wall of thorax, initial encounter; I25.10 Atherosclerotic heart disease of native coronary artery without angina pectoris; I11.0 Hypertensive heart disease with heart failure; I50.9 Heart failure, unspecified; F41.9 Anxiety disorder, unspecified; N40.0 Benign prostatic hyperplasia without lower urinary tract symptoms; Z79.82 Long term (current) use of aspirin; Z87.442 Personal history of urinary calculi; Z86.74 Personal history of sudden cardiac arrest; Z79.01 Long term (current) use of anticoagulants; Z79.899 Other long term (current) drug therapy; X58.XXXA Exposure to other specified factors, initial encounter; Y93.89 Activity, other specified; Y92.89 Other specified places as the place of occurrence of the external cause; Y99.8 Other external cause status
CPT/HCPCS: 36415; 71045; 71101; 75710; 80048; 80053; 81001; 82962; 83605; 83735; 83880; 84484; 85025; 85610; 86850; 86900; 86901; 87081; 87086; 92941; 92973; 92978; 92979; 93005; 93306; 93458; 96365; 96375; 99152; 99291; G0378; J1815; J2250; J2405; J2470; Q9967